=== PATIENT | female | born 2005 | race Two or more races ===

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

== ENCOUNTER 2024-06-19 11:49 | Emergency (ER) | payer BC, SELFPAY ==
[2024-06-19] VITALS (8 sets, daily range): BP systolic 105–125; BP diastolic 52–85; PULSE 64–76; RESP 15–19; TEMP 36.3–36.6; O2SAT 98–100
--- NOTE | 2024-06-19 12:14 | ED.FEMALEGU ---
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 Kumar ASSOCIATED WITH NAUSEA AND VOMITING. HISTORY OF ANEMIA SECONDARY TO HEAVY MENSTRUAL PERIOD, CURRENTLY ON IRON SUPPLEMENT. PATIENT DOES USE MARIJUANA DAILY. SHE DENIES ANY HISTORY OF ABDOMINAL SURGERY. PATIENT IS TELLING ME THAT HER SYMPTOM TODAY EXACTLY THE SAME WHEN SHE GET BAD MENSTRUAL CYCLE. BEEN ON DIFFERENT KIND OF CONTRACEPTIVE PILLS WITHOUT SIGNIFICANT IMPROVEMENT SHE DENIES ANY FEVER OR CHILLS, OR ANY POSSIBILITY OF , OR URINARY SYMPTOMS. Related Data Allergies Allergy/AdvReac Type Severity Reaction Status Date / Time No Known Allergies Allergy Verified 06/19/24 11:50 Review of Systems Review of Systems: All systems reviewed & are unremarkable except as noted in HPI and below PMFSH Social History Social History Smoking status: Never smoker Alcohol intake: never Substance use: never Living arrangements: with family Gender identity (if verbalized by the patient): Female Exam Narrative: GENERAL APPEARANCE: WELL-DEVELOPED, WELL-NOURISHED SKIN: NORMAL COLOR HEAD: NORMOCEPHALIC, NONTRAUMATIC EYES: CLEAR CONJUNCTIVA ENT: OROPHARYNX NORMAL, EARS NORMAL, NOSE NORMAL NECK: SUPPLE, NONTENDER CHEST AND RESPIRATORY: AIRWAY PATENT, NO RESPIRATORY DISTRESS, NO ACCESSORY MUSCLE USE HEART: REGULAR RATE/RHYTHM ABDOMEN: SOFT, SEVERE DIFFUSE TENDERNESS LOWER ABDOMEN BILATERALLY , NO ORGANOMEGALY, QUIET BOWEL SOUNDS VASCULAR: NORMAL PERIPHERAL PULSES, NORMAL CAPILLARY REFILL. 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, NO GROSS MOTOR DEFICIT Course Vital Signs Vital signs: Vital Signs Temperature 36.3 C L 06/19/24 11:53 Pulse Rate 65 06/19/24 11:53 Respiratory Rate 18 06/19/24 11:53 Blood Pressure 111/53 L 06/19/24 11:53 Pulse Oximetry 99 06/19/24 11:53 Oxygen Delivery Room Air 06/19/24 11:53 Temperature 36.3 C L 06/19/24 11:53 Pulse Rate 71 06/19/24 14:04 Respiratory Rate 15 06/19/24 14:04 Blood Pressure 105/52 L 06/19/24 14:04 Pulse Oximetry 98 06/19/24 14:04 Oxygen Delivery Room Air 06/19/24 11:53 MDM - Female Genitourinary MDM Narrative Medical decision making narrative: Patient came with lower abdominal cramps after starting her. This morning, history of dysmenorrhea for years, patient had similar symptom numerous of time in the past, this time happen while is at work. Vital signs are stable Physical examination showing diffuse lower abdominal tenderness Differential diagnosis include dysmenorrhea, anemia, anxiety like symptoms, marijuana induced vomiting Blood workup today includes CBC, CMP serum test showed no significant abnormalities Diagnosis dysmenorrhea The pt was discharged to home.the pt,s condition upon discharge was fair,education was provided to the pt in reference to the final impression,discharge study results,treatment,prognosis and need for follow up . Medical Records Attestation: I reviewed the patient's medical records. Lab Data Attestation: I reviewed the patient's lab results. 06/19/24 12:28 06/19/24 12:28 Labs: Lab Results 06/19/24 06/19/24 Range/Units 12:07 12:28 WBC 7.6 (4.5-10.0) K/mm3 RBC 4.45 (4.2-5.4) M/mm3 Hgb 12.2 (12.0-15.0) g/dL Hct 37.9 (37.0-47.0) % MCV 85.2 (80-100) fl MCH 27.4 (26-34) pg MCHC 32.2 (32-36) g/dl RDW 13.2 (11.5-14.5) % Plt Count 206 (150-375) k/mm3 MPV 10.9 H (7.4-10.4) fl Immature Gran % (Auto) 0.4 (0-0.5) % Neut % (Auto) 70.8 (45.5-73.1) % Lymph % (Auto) 21.7 (18.3-44.2) % Glascock % (Auto) 6.4 (2.6-8.5) % Eos % (Auto) 0.3 (0-4.4) % Baso % (Auto) 0.4 (0.2-1.2) % Lymph # (Auto) 1.65 (0.9-3.2) K/mm3 Glascock # (Auto) 0.5 (0.1-0.6) K/mm3 Eos # (Auto) 0.0 (0-0.3) K/mm3 Baso # (Auto) 0.0 (0.0-0.1) K/mm3 Abs Immat Gran (auto) 0.03 (0.00-0.031) K/mm3 Absolute Neuts (auto) 5.4 (1.3-6.7) K/mm3 Absolute Nucleated RBC 0.000 (0.0-0.012) K/mm3 Nucleated RBC % 0.0 (0.0-0.2) % Sodium 138 (137-145) mmol/L Potassium 3.7 (3.4-5.0) mmol/L Chloride 107 (98-107) mmol/L Carbon Dioxide 27 (22-30) mmol/L Anion Gap 4 (4-12) mmol/L BUN 9 (7-17) mg/dL Creatinine 0.70 (0.7-1.0) mg/dL Estim Creat Clear Calc 84 ml/min Estimated GFR > 60 (59 - ) Glucose 81 (65-110) mg/dL Calcium 9.4 (8.4-10.2) mg/dL Total Bilirubin 0.7 (0.2-1.3) mg/dL AST 25 (14-36) U/L ALT 11 (6-35) U/L Alkaline Phosphatase 41 (38-126) U/L Total Protein 8.0 (6.3-8.2) g/dL Albumin 4.6 (3.5-5.1) g/dL Serum HCG, Qual Negative POC Urine HCG, Qual Negative (Negative) Critical Care Time Critical Care Time Critical Care Time: No Discharge Plan Discharge Clinical Impression: Dysmenorrhea Patient Disposition: Home, Self-Care Condition: Stable Instructions: Dysmenorrhea (ED) Additional Instructions: Return if symptoms are worsening , call your family physician for appointment, take Tylenol as as needed for aches and pain, continue home medications. Encourage fluid intake, ibuprofen 800 every 8 hours as needed Follow-up/Referrals: Laura Winn MD [Physician] - 06/21/24 Maura,Paige Bravo MD [Non-Staff] -
[2024-06-19 12:17] LABS: BEDSIDEPREGUCG Negative (Negative)
[2024-06-19 12:34] LABS: Basophils Percent Auto 0.4 % (0.2-1.2); Eosinophils Percent Auto 0.3 % (0-4.4); Hematocrit 37.9 % (37.0-47.0); Hemoglobin 12.2 g/dL (12.0-15.0); Immature Granulocyte Absolute 0.03 K/mm3 (0.00-0.031); Immature Granulocyte Percent A 0.4 % (0-0.5); Lymphocytes Absolute Auto 1.65 K/mm3 (0.9-3.2); Lymphocytes Percent Auto 21.7 % (18.3-44.2); Mean Corpuscular HGB Conc 32.2 g/dl (32-36); Mean Corpuscular Hemoglobin 27.4 pg (26-34); Mean Corpuscular Volume 85.2 fl (80-100); Mean Platelet Volume 10.9 fl (7.4-10.4); Monocytes Absolute Auto 0.5 K/mm3 (0.1-0.6); Monocytes Percent Auto 6.4 % (2.6-8.5); Neutrophils Absolute Auto 5.4 K/mm3 (1.3-6.7); Neutrophils Percent Auto 70.8 % (45.5-73.1); Platelet Count Result 206 k/mm3 (150-375); Red Blood Count 4.45 M/mm3 (4.2-5.4); Red Cell Distribution Width 13.2 % (11.5-14.5); White Blood Count 7.6 K/mm3 (4.5-10.0)
[2024-06-19] MEDS: SODIUM CHLORIDE 0.9% IV 2,000 ML 999 ML IV CONT (12:35)
[2024-06-19] MEDS: ONDANSETRON INJ 4 MG/2 ML VIAL IV PUSH (12:36)
[2024-06-19] MEDS: KETOROLAC 30 MG/ML VIAL (*BKC) IV PUSH (12:37)
[2024-06-19] MEDS: HYDROmorphone HCL INJ (*CRX) 1 MG/ML SYR 0.5 MG IV PUSH ×2 (12:38→14:29)
[2024-06-19 12:44] LABS: Alanine Aminotransferase 11 U/L (6-35); Albumin Level 4.6 g/dL (3.5-5.1); Alkaline Phosphatase 41 U/L (38-126); Anion Gap 4 mmol/L (4-12); Aspartate Amino Transferase 25 U/L (14-36); Bilirubin,Total 0.7 mg/dL (0.2-1.3); Blood Urea Nitrogen 9 mg/dL (7-17); Calcium 9.4 mg/dL (8.4-10.2); Carbon Dioxide 27 mmol/L (22-30); Chloride 107 mmol/L (98-107); Estimated CRCL calculation 84 ml/min; Estimated Glomerular Filt Rate > 60; Glucose 81 mg/dL (65-110); Potassium 3.7 mmol/L (3.4-5.0); Sodium 138 mmol/L (137-145)
[2024-06-19 12:54] LABS: SPREG INTERNAL CONTROL Positive; Serum Qual hCG Negative
== END 2024-06-19 14:57 | disposition home or self-care (01) ==
PROVIDERS: Emergency Provider Emergency Medicine
DX: N94.6 Dysmenorrhea, unspecified (principal); D64.9 Anemia, unspecified
CPT/HCPCS: 36415; 80053; 81025; 84703; 85025; 96361; 96374; 96375; 96376; 99284; J1171; J1885; J2405; J7030

== ENCOUNTER 2024-08-24 20:45 | Emergency (ER) | payer BC, SELFPAY ==
--- OUTSIDE RECORDS SUMMARY | 2024-08-24 20:47 | XMS_ITS | Encounter Summary ---
Author Organization 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
--- OUTSIDE RECORDS SUMMARY | 2024-08-24 20:47 | XMS_ITS | Referral Summary ---
Author Organization [facility] Address [address] [place] [address] Care Team Providers Care Continuous Mining Machine Lode Miner Name Role Phone Paige Lorenzo MD Primary Care Pro vider Fox Boggs MD Unavailable [phone] Allergies No known active allergies Medications hydrOXYzine (VISTARIL) 25 mg capsule Take 1 capsule (25 mg total) by mouth every 6 (six) hours as needed for itching (PAIN) 60 capsule 1 0 Active Additional Information Patient not taking.Reported on 02/14/2020 HYDROcodone-morgan taminophen (NORCO) 5-325 mg per tabletIndicatio ns:Pain Take 1 tablet by mouth every 4 (four) hours as needed for pain 10 tablet 0 Active Additional Information Patient not taking.Reported on 06/05/2020 famotidine (PEPCID) 20 mg tablet Take 1 tablet (20 mg total) by mouth 2 (two) times a day 60 tablet 11 4 11/29/19 25 Active Active Problems Problem Noted Date Diagnosed Date Wound dehiscence 05/22/2020 Overview (05/22/2020): Added automatically from request for surgery [id number] Right hip pain 02/16/2020 Hip dysplasia, acquired, right 11/30/2019 Overview (11/30/2019): Added automatically from request for surgery [id number] Apnea 12/15/2018 Overview (12/15/2018): Overview: MILD SLEEP APNEA Immunizations Name Administration Dates Next Due DTaP 09/04/2007,11/19/2005,10/02/2005 ,2003 DTaP / Hep B / IPV 2003,2003 HPV9 03/07/2017,03/05/2016 Hep A, Pediatric 06/10/2006,11/19/2005 Hep B, Adolescent or Pediatric 10/02/2005,2003,2003,2003 HiB 11/19/2005,10/02/2005,2003 ,2003 Hib (HbOC) 11/19/2005,10/02/2005,2003 ,2003 IPV 09/04/2007, 6,10/02/2005,2003 ,2003 Influenza, Split 07/30/2008,06/10/2006 Influenza, Unspecified 07/30/2006 MMR 09/04/2007,10/02/2005 Meningococcal Conjugate (Menveo) 09/06/2020,080 11/2014 Pneumococcal Conjugate 7-Valent 10/02/2005,12/28,2003 Tdap 03/01/2015 Varicella 09/04/2007,10/02/2005 Social History Tobacco Use Types Packs/Day Years Used Date Smoking Tobacco: Never Smokeless Tobacco: Never Alcohol Use Standard Drinks/Week Comments Never 0 (1 standard drink = 0.6 oz pur e alcohol) AUDIT-C Answer Date Recorded Q1: How often do you have a drink containing alc ohol? Never 05/22/2020 Average Number of Drinks Not on file 020 Frequency of Binge Drinking Not on file 04/28 Personal Safety Answer Date Recorded Have you ever been in or are you currently in a harmful physical or emotional relationship or is someone making you feel afraid or unsafe? 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 Gender Identity Not on file Sexual Orientation Not on file Last Filed Vital Signs Vital Sign Reading Time Taken Comments Blood Pressure 115/69 11/29/2023 2:10 AM CDT Pulse 67 11/29/2023 2:10 AM CDT Temperature 36.8 ??C (98.2 ??F) 11/29/2023 2:10 AM CD T Respiratory Rate 16 11/29/2023 2:10 AM CDT Oxygen Saturation 100% 11/29/2023 2:10 AM CDT Inhaled Oxygen Concentration - - Weight 48.5 kg (107 lb) 11/28/2023 8:39 PM CDT Height 157.5 cm (5' 2 ) 11/28/2023 8:39 PM CDT Body Mass Index 19.57 11/28/2023 8:39 PM CDT Plan of Treatment Not on file Medical Devices Implanted Type Area Legal Executive Assistant Device Identifier Shelf Expiration Date Model / Serial / Lot Powell & Nephew Endoscopy [id number] [place] Suture Microraptor Regenesorb Knotless Rigid - Sn/A - [id number] Implanted:Qty: 1 on 01/18/2020 by Fox Boggs MD at [facility] Other - see comments Right: Hip [employer] Nephew Endoscopy [id number] 03/15/2022 [id number] / N/A / [id number] Powell [employer] Nephew Endoscopy [id number] [place] Suture Microraptor Regenesorb Knotless Rigid - Sn/A - [id number] Implanted:Qty: 1 on 01/18/2020 by Fox Boggs MD at [facility] Other - see comments Right: Hip Powell [employer] Nephew Endoscopy [id number] 04/08/2022 [id number] / N/A / [id number] Synthes 214.880 4.5mm 8mm 80mm Self Tap Large Hexagonal Socket Cortical Screw - Sn/A - [id number] Implanted:Qty: 1 on 01/18/2020 by Fox Boggs MD at [facility] Screw Right: Hip Synthes I 214.880 / N/A / N/A Synthes 214.895 4.5mm 8mm 95mm Self Tap Large Hexagonal Socket Cortical Screw - Sn/A - [id number] Implanted:Qty: 1 on 01/18/2020 by Fox Boggs MD at [facility] Screw Right: Hip Synthes I 214.895 / N/A / N/A Synthes 214.870 4.5mm 8mm 70mm Self Tap Large Hexagonal Socket Cortex Screw Bone - Sn/A - [id number] Implanted:Qty: 1 on 01/18/2020 by Fox Boggs MD at [facility] Screw Right: Hip Synthes I 214.870 / N/A / N/A Synthes 214.860 4.5mm 8mm 60mm Self Tap Large Hexagonal Socket Cortical Screw - Sn/A - [id number] Implanted:Qty: 1 on 01/18/2020 by Fox Boggs MD at [facility] Screw Right: Hip Synthes I 214.860 / N/A / N/A Explanted Type Area Legal Executive Assistant Device Identifier Shelf Expiration Date Model / Serial / Lot Synthes 294.786 Schanz 5mm 200mm 80mm Self Drill Mr Conditional Screw External - Sn/A - [id number] Explanted:Qty: 1 on 01/18/2020 by Fox Boggs MD at [facility] Screw Right: Hip Synthes I 294.786 / N/A / N/A Description:Used for procedu re and removed at end. Synthes 292.26 Chana 2.5mm 285mm [place] Wire Fixation Stainless Steel - Sn/A - [id number] Explanted:Qty: 2 on 01/18/2020 by Fox Boggs MD at [facility] Wire Right: Hip Synthes I 292.26 / N/A / N/A Description:Used for procedu re and removed at end. 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
--- OUTSIDE RECORDS SUMMARY | 2024-08-24 20:47 | XMS_ITS | Clinical Summary ---
Author Organization [facility] Address [address] [place] [address] Care Team Providers Care House Detective Name Role Phone Paige Lorenzo MD Primary Care Pro vider Fox Boggs MD Unavailable [phone] Allergies No known active allergies Medications [...] (05/22/2020): Added automatically from request for surgery [id number] Right hip pain 02/16/2020 Hip dysplasia, acquired, right 11/30/2019 Overview (11/30/2019): Added automatically from request for surgery [id number] Apnea 12/15/2018 Overview (12/15/2018): Overview: MILD SLEEP APNEA Immunizations Name Administration Dates Next Due DTaP 09/04/2007,11/19/2005,10/02/2005 ,2003 DTaP / Hep B / IPV 2003,2003 HPV9 03/07/2017,03/05/2016 Hep A, Pediatric 06/10/2006,11/19/2005 Hep B, Adolescent or Pediatric 10/02/2005,2003,2003,2003 HiB 11/19/2005,10/02/2005,2003 ,2003 Hib (HbOC) 11/19/2005,10/02/2005,2003 ,2003 IPV 09/04/2007, 6,10/02/2005,2003 ,2003 Influenza, Split 07/30/2008,06/10/2006 Influenza, Unspecified 07/30/2006 MMR 09/04/2007,10/02/2005 Meningococcal Conjugate (Menveo) 09/06/2020,08/0 11/2014 Pneumococcal Conjugate 7-Valent 10/02/2005,12/28,2003 Tdap 03/01/2015 Varicella 09/04/2007,10/02/2005 Surgical History Surgery Date Site/Laterality Comments TONSILLECTOMY 07/28/2009 - 07/27/2010 Tonsillectomy FLUORO GUIDED INJECTION HIP RIGHT 01/11/2019 Right HIP SURGERY Medical History Medical History Date Comments Hip pain Hip dysplasia Family History Medical History Relation Name Comments Low Back Pain Father Anesthesia problems Neg Hx Relation Name Status Comments Father Alive Mother Alive Social History Tobacco Use Types Packs/Day Years [...] on file Legal Sex Female 1:[address] Gender Identity Not on file Sexual Orientation Not on file Obstetrics History Last Filed Vital Signs Vital Sign Reading [...] 11/28/2023 8:39 PM CDT Plan of Treatment Health Maintenance Due Date Last Done Comments Cervical Cancer Screening 2003 Depression Screening 2003 Hepatitis C Screening 2003 Meningococcal B Vaccine (1 o f 2 - Patient Seeks Protection) 2019 Regular Well Visit/Exam 18-64 2021 Covid-19 Vaccine (2 - 2023-2 5 season) 2024 02/15/2021 Influenza Vaccine (#1) 2024 9, 07/30/2006, 06/10/2006 DTaP/Tdap/Td Vaccine (6 - Td or Tdap) 03/01/2025 03/01/2015, 09/04/2007, 11/19/2005, Additional history exists Pneumococcal vaccine <65 Completed 006, 2003, 2003 Varicella Vaccines Completed 09/04/2007, 10/02/2005 HPV Vaccines Completed 03/07/2017, 03/05/2016 Meningococcal Vaccine Completed 09/06/2020, 015 Medical Devices Implanted Type Area Orchard Pruner Device Identifier Shelf Expiration Date Model / Serial / Lot Powell & Nephew Endoscopy [id number] [place] Suture Microraptor Regenesorb Knotless Rigid - Sn/A - [id number] Implanted:Qty: 1 on 01/18/2020 by Fox Boggs MD at [facility] Other - see comments Right: Hip [employer] Nephew Endoscopy [id number] 03/15/2022 [id number] / N/A / [id number] Powell [employer] Nephew Endoscopy [id number] [place] Suture Microraptor Regenesorb Knotless Rigid - Sn/A - [id number] Implanted:Qty: 1 on 01/18/2020 by Fox Boggs MD at [facility] Other - see comments Right: Hip [employer] Nephew Endoscopy [id number] 04/08/2022 [id number] / N/A / [id number] Synthes 214.880 4.5mm 8mm 80mm Self Tap Large Hexagonal Socket Cortical Screw - Sn/A - [id number] Implanted:Qty: 1 on 01/18/2020 by Fox Boggs MD at [facility] Screw Right: Hip Synthes I 214.880 / N/A / N/A Synthes 214.895 4.5mm 8mm 95mm Self Tap Large Hexagonal Socket Cortical Screw - Sn/A - [id number] Implanted:Qty: 1 on 01/18/2020 by Fox Boggs MD at [facility] Screw Right: Hip Synthes I 214.895 / N/A / N/A Synthes 214.870 4.5mm 8mm 70mm Self Tap Large Hexagonal Socket Cortex Screw Bone - Sn/A - [id number] Implanted:Qty: 1 on 01/18/2020 by Fox Boggs MD at [facility] Screw Right: Hip Synthes I 214.870 / N/A / N/A Synthes 214.860 4.5mm 8mm 60mm Self Tap Large Hexagonal Socket Cortical Screw - Sn/A - [id number] Implanted:Qty: 1 on 01/18/2020 by Fox Boggs MD at [facility] Screw Right: Hip Synthes I 214.860 / N/A / N/A Explanted Type Area Orchard Pruner Device Identifier Shelf Expiration Date Model / Serial / Lot Synthes 294.786 Schanz 5mm 200mm 80mm Self Drill Mr Conditional Screw External - Sn/A - [id number] Explanted:Qty: 1 on 01/18/2020 by Fox Boggs MD at [facility] Screw Right: Hip Synthes I 294.786 / N/A / N/A Description:Used for procedu re and removed at end. Synthes 292.26 Chana 2.5mm 285mm [place] Wire Fixation Stainless Steel - Sn/A - [id number] Explanted:Qty: 2 on 01/18/2020 by Fox Boggs MD at [facility] Wire Right: Hip Synthes I 292.26 / N/A / N/A Description:Used for procedu re and removed at end. Insurance ANTHEM ACCESS ANTHEM ACCESS CHOICE BLUE ACCESS OOS [facility] KERRI VALENZUELA [address] [employer] OOS [id number] Digital ACCESS Member Subscriber Plan / Payer (Ef fective 2015-Present) Name:Rosalie Bolton Relation to Subscriber:Other Relationship Name:ROSY BOLTON Subscriber ID:Not on file Date of :1975 Payer ID:[id number] (NAIC) Type:[employer] Address: [address] CHOICE PLUS BLUE ACCESS OOS BLUE ACCESS [place] BLUE ACCESS OOS ANTH ACCESS Care Teams House Detective Relationship Specialty Start Date End Date Paige Lorenzo MD PCP - General 10/11/17 Fox Boggs MD [address] [facility] [address] [place] [address] Surgeon Orthopedic Surgery 05/23/20
[2024-08-24 21:14] VITALS: BP 114/74; PULSE 82; RESP 20; TEMP 37.4; O2SAT 99
--- NOTE | 2024-08-24 22:29 | PC.NURSE ---
1st call no answer
--- NOTE | 2024-08-24 22:37 | PC.NURSE ---
2nd call no answer
--- OUTSIDE RECORDS SUMMARY | 2024-08-24 22:49 | XMS_ITS | Encounter Summary ---
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
--- OUTSIDE RECORDS SUMMARY | 2024-08-24 22:49 | XMS_ITS | Clinical Summary ---
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 Gender Identity Not on file Sexual Orientation [...] 09/06/2020, 015 Medical Devices Implanted Type Area Extractor Machine Operator Device Identifier Shelf Expiration Date Model / Serial / Lot Powell & Nephew Endoscopy [id number] [place] Suture Microraptor Regenesorb Knotless Rigid - Sn/A - [id number] Implanted:Qty: 1 on 01/18/2020 by Fox Boggs MD at [facility] Other - see comments Right: Hip [employer] Nephew Endoscopy [id number] 03/15/2022 [id number] / N/A / [id number] Powell [employer] Nephew Endoscopy [id number] [place] Suture Microraptor Regenesorb Knotless Rigid - Sn/A - [id number] Implanted:Qty: 1 on 01/18/2020 by Fox Boggs MD at [facility] Other - see comments Right: Hip [employer] Nephew Endoscopy [id number] 04/08/2022 [id number] / N/A / [id number] Synthes 214.880 4.5mm 8mm 80mm Self Tap Large Hexagonal Socket Cortical Screw - Sn/A - [id number] Implanted:Qty: 1 on 01/18/2020 by Fox Boggs MD at [facility] Screw Right: Hip Synthes I 214.880 / N/A / N/A Synthes 214.895 4.5mm 8mm 95mm Self Tap Large Hexagonal Socket Cortical Screw - Sn/A - [id number] Implanted:Qty: 1 on 01/18/2020 by Fox Boggs MD at [facility] Screw Right: Hip Synthes I 214.895 / N/A / N/A Synthes 214.870 4.5mm 8mm 70mm Self Tap Large Hexagonal Socket Cortex Screw Bone - Sn/A - [id number] Implanted:Qty: 1 on 01/18/2020 by Fox Boggs MD at [facility] Screw Right: Hip Synthes I 214.870 / N/A / N/A Synthes 214.860 4.5mm 8mm 60mm Self Tap Large Hexagonal Socket Cortical Screw - Sn/A - [id number] Implanted:Qty: 1 on 01/18/2020 by Fox Boggs MD at [facility] Screw Right: Hip Synthes I 214.860 / N/A / N/A Explanted Type Area Extractor Machine Operator Device Identifier Shelf Expiration Date Model / Serial / Lot Synthes 294.786 Schanz 5mm 200mm 80mm Self Drill Mr Conditional Screw External - Sn/A - [id number] Explanted:Qty: 1 on 01/18/2020 by Fox Boggs MD at [facility] Screw Right: Hip Synthes I 294.786 / N/A / N/A Description:Used for procedu re and removed at end. Synthes 292.26 Chana 2.5mm 285mm [place] Wire Fixation Stainless Steel - Sn/A - [id number] Explanted:Qty: 2 on 01/18/2020 by Fox Boggs MD at [facility] Wire Right: Hip Synthes I 292.26 / N/A / N/A Description:Used for procedu re and removed at end. Insurance ANTHEM ACCESS ANTHEM ACCESS CHOICE BLUE ACCESS OOS [facility] KERRI VALENZUELA [address] [employer] OOS ANTHASSIA ACCESS Member Subscriber Plan / Payer (Ef fective 2015-Present) Name:Rosalie Bolton Relation to Subscriber:Other Relationship Name:ROSY BOLTON Subscriber ID:Not on file Date of :1975 Payer ID:[id number] (NAIC) Type:[employer] Address: [address] CHOICE PLUS [facility] HMO/PPO Address: [address] [address] [place] [address] BLUE ACCESS OOS BLUE ACCESS [place] BLUE ACCESS OOS ANTH ACCESS Care Teams Psychologist Military Personnel Relationship Specialty Start Date End Date Paige Lorenzo MD PCP - General 10/11/17 Fox Boggs MD [address] [facility] [address] [place] [address] Surgeon Orthopedic Surgery 05/23/20
--- OUTSIDE RECORDS SUMMARY | 2024-08-24 22:49 | XMS_ITS | Referral Summary ---
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 Other - see comments Right: Hip [employer] Nephew Endoscopy [id number] 03/15/2022 [id number] / N/A / [id number] Powell [employer] Nephew Endoscopy [id number] [place] Suture Microraptor Regenesorb Knotless Rigid - Sn/A - [id number] Implanted:Qty: 1 on 01/18/2020 by Fox Boggs MD at [facility] Other - see comments Right: Hip Powell [employer] Nephew Endoscopy [id number] 04/08/2022 [id number] / N/A / [id number] Synthes 214.880 4.5mm 8mm 80mm Self Tap Large Hexagonal Socket Cortical Screw - Sn/A - [id number] Implanted:Qty: 1 on 01/18/2020 by Fox Boggs MD at [facility] Screw Right: Hip Synthes I 214.880 / N/A / N/A Synthes 214.895 4.5mm 8mm 95mm Self Tap Large Hexagonal Socket Cortical Screw - Sn/A - [id number] Implanted:Qty: 1 on 01/18/2020 by Fox Boggs MD at [facility] Screw Right: Hip Synthes I 214.895 / N/A / N/A Synthes 214.870 4.5mm 8mm 70mm Self Tap Large Hexagonal Socket Cortex Screw Bone - Sn/A - [id number] Implanted:Qty: 1 on 01/18/2020 by Fox Boggs MD at [facility] Screw Right: Hip Synthes I 214.870 / N/A / N/A Synthes 214.860 4.5mm 8mm 60mm Self Tap Large Hexagonal Socket Cortical Screw - Sn/A - [id number] Implanted:Qty: 1 on 01/18/2020 by Fox Boggs MD at [facility] Screw Right: Hip Synthes I 214.860 / N/A / N/A Explanted Type Area Materials Planner/Production Planner Device Identifier Shelf Expiration Date Model / Serial / Lot Synthes 294.786 Schanz 5mm 200mm 80mm Self Drill Mr Conditional Screw External - Sn/A - [id number] Explanted:Qty: 1 on 01/18/2020 by Fox Boggs MD at [facility] Screw Right: Hip Synthes I 294.786 / N/A / N/A Description:Used for procedu re and removed at end. Synthes 292.26 Chana 2.5mm 285mm [place] Wire Fixation Stainless Steel - Sn/A - [id number] Explanted:Qty: 2 on 01/18/2020 by Fox Boggs MD at [facility] Wire Right: Hip Synthes I 292.26 / N/A / N/A Description:Used for procedu re and removed at end. Insurance ACCESS ANTHEM ACCESS CHOICE BLUE ACCESS OOS BLUE ACCESS OOS ANTHEM ACCESS Member Subscriber Plan / Payer (Ef fective 2015-Present) Name:Rosalie Bolton Relation to Subscriber:Other Relationship Name:ROSY BOLTON Subscriber ID:Not on file Date of :1975 Payer ID:[id number] (NAIC) Type:[employer] Address: [address] CHOICE PLUS [facility] HMO/PPO Address: [address] [address] [place] [address] BLUE [employer] OOS BLUE ACCESS [place] [employer] ACCESS OOS [employer] ACCESS Care Teams Front Line Leader Relationship Specialty Start Date End Date Paige Lorenzo MD PCP - General 10/11/17 Fox Boggs MD [address] [facility] [address] [place] [address] Surgeon Orthopedic Surgery 05/23/20
== END 2024-08-24 22:37 | disposition left against medical advice (07) ==
LOC: ANHED 22:47
DX: J02.9 Acute pharyngitis, unspecified (principal)
CPT/HCPCS: 99199

== ENCOUNTER 2025-03-23 12:25 | Emergency (ER) | payer BC, SELFPAY ==
--- NOTE | ~2025-03-23 | US_ITS ---
EXAMINATION: US pelvic complete INDICATION: Severe pelvic pain Comparison:No prior studies for comparison. TECHNIQUE: Multiple transabdominal and endovaginal sonographic images of the pelvis performed. FINDINGS: The uterus measures 6.5 x 4.4 x 3.9 cm. The endometrial complex measures 4 mm. The right ovary measures 4.1 x 4.0 x 3.1 cm and the left ovary measures 2.5 x 2.5 x 1.6 cm. There are small follicles in each ovary. There is a 3.9 cm simple cyst of the right ovary. Normal doppler signal in both ovaries. There is no free fluid in the pelvis. There are no abnormal masses seen on either side. IMPRESSION: 1. Simple cyst of the right ovary measuring 3.9 cm. Reviewed, dictated and finalized at location O.
--- OUTSIDE RECORDS SUMMARY | 2025-03-23 12:27 | XMS_ITS | Clinical Summary ---
Author Organization [facility] Address [address] [place] [address] Phone Care Team Providers Care Tank Inspector Name Role Phone Paige Lorenzo MD Primary Care Provider Allergies No known active allergies Medications silver sulfADIAZINE (SILVADENE) 1 % CreamIndications :Sunburn of second degree Apply 2 times daily. Application Site: Face (Description and Location) 50 g Active Active Problems No known active problems Encounters Date Type Department Care Team Description 01/04/2025 2:30 PM CDT Urgent Care Visit [facility] [address] [place] [address] Vishnu Presley PAC Sunburn of second degree (Primary Dx) Discharge Disposition: Discharged to home or Selfcare 01/04/2025 Travel from Last 3 Months Social History Tobacco Use Types Packs/Day Years Used Date Smoking Tobacco: Never Smokeless Tobacco: Never Tobacco Cessation:Counseling Given: No Alcohol Use Standard Drinks/Week Comments No 0 (1 standard drink = 0.6 oz pur e alcohol) Sexually Active Control Partners Comments Yes Comments No Sex and Gender Information Value Date Recorded Sex Assigned at Not on file Legal Sex Female 8:11 PM CDT Gender Identity Not on file Sexual Orientation Not on file Last Filed Vital Signs Vital Sign Reading Time Taken Comments Blood Pressure 130/70 01/04/2025 2:51 PM CDT Pulse 68 01/04/2025 2:51 PM CDT Temperature 36.4 C (97.5 F) 01/04/2025 2:51 PM CDT Respiratory Rate 16 01/04/2025 2:51 PM CDT Oxygen Saturation 97% 01/04/2025 2:51 PM CDT Inhaled Oxygen Concentration - - Weight 53.5 kg (118 lb) 08/04/2018 4:28 PM CAB DRIVER Height 160 cm (5' 3) 08/04/2018 4:28 PM CAB DRIVER Body Mass Index 20.9 08/04/2018 4:28 PM CAB DRIVER Plan of Treatment Health Maintenance Due Date Last Done Comments Hepatitis C Virus (HCV) Screening 2003 Meningococcal B Immunization (1 of 2 - Standard) 2019 SARS-COV-2 Immunization (2 - season) 2024 02/15/2021 Pap Smear 2024 Influenza Immunization (#1) 2025 07/30/2006 Respiratory Syncytial Virus (RSV) Immunization (Adult) (1 - 1-dose 75+ series) 2078 Hepatitis B Immunization Completed 006, 2003, 2003, Additional history exists Pneumococcal Immunization Combined Aged Out 10/02/2005, 2003, 2003 No longer eligible based on patient's age to complete this topic TdaP Immunization Completed 03/01/2015 Human Papillomavirus (HPV) Immunization Completed 03/07/2017, 03/05/2016 Meningococcal Immunization (ACWY) Completed 09/06/2020, 03/01/2015 Rotavirus Immunization Aged Out No lo nger eligible based on patient's age to complete this topic Insurance [facility] Care Teams Tank Inspector Relationship Specialty Start Date End Date Paige Lorenzo MD [address] [place] [address] [place] [address] PCP - General Pediatrics 08/04/18
[2025-03-23 12:44] VITALS: BP 118/80; PULSE 68; RESP 20; TEMP 36.6; O2SAT 100
[2025-03-23] MEDS: KETOROLAC 30 MG/ML VIAL (*BKC) IM (13:27)
[2025-03-23 13:29] LABS: BEDSIDEPREGUCG Negative (Negative)
--- OUTSIDE RECORDS SUMMARY | 2025-03-23 13:46 | XMS_ITS | Encounter Summary ---
Author Organization [facility] Healthcare Address [address] [place] [address] Care Team Providers Care Electrical Assemblies Supervisor Name Role Phone Paige Lorenzo MD Primary Care Pro vider Fox Boggs MD Unavailable [phone] Encounter Details Date Type Department Care Team (Late st Contact Info) Description 01/14/2020 Telephone [facility] [address] [place] [address] Martina Phillips RT Social History Tobacco Use Types Packs/Day Years Used Date Smoking Tobacco: Never Smokeless Tobacco: Never Comments No Sex and Gender Information Value Date Recorded Sex Assigned at Not on file 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
--- OUTSIDE RECORDS SUMMARY | 2025-03-23 13:46 | XMS_ITS | Clinical Summary ---
Author Organization [facility] Address [address] [place] [address] Care Team Providers Care Floor Grinder Name Role Phone Paige Lorenzo MD Primary Care Pro vider Fox Boggs MD Unavailable [phone] Allergies No known active allergies Medications [...] times a day 60 tablet 11 4 Active Active Problems Problem Noted Date Diagnosed Date Wound dehiscence 05/22/2020 Overview (05/22/2020): Added automatically from request for surgery [id number] Right hip pain 02/16/2020 Hip dysplasia, acquired, right 11/30/2019 Overview (11/30/2019): Added automatically from request for surgery [id number] Apnea 12/15/2018 Overview (12/15/2018): Overview: MILD SLEEP APNEA Immunizations Immunization Administration Dates Next Due DTaP 09/04/2007,11/19/2005,10/02/2005 ,2003 [...] on file Legal 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 Gender Identity Not on file Sexual Orientation Not on file Obstetrics History Last Filed Vital Signs Vital Sign Reading Time Taken Comments Blood Pressure 115/69 11/29/2023 2:10 AM CDT Pulse 67 11/29/2023 2:10 AM CDT Temperature 36.8 C (98.2 F) 11/29/2023 2:10 AM CDT Respiratory Rate 16 11/29/2023 2:10 AM CDT Oxygen Saturation 100% 11/29/2023 2:10 AM CDT Inhaled Oxygen Concentration - - Weight 48.5 kg (107 lb) 11/28/2023 8:39 PM CDT Height 157.5 cm (5' 2) 11/28/2023 8:39 PM CDT Body Mass Index 19.57 11/28/2023 8:39 PM CDT Plan of Treatment Health Maintenance Due Date Last Done Comments Cervical Cancer Screening 2003 Depression Screening 2003 Hepatitis C Screening 2003 Meningococcal B Vaccine (1 o f 2 - Standard) 2019 Regular Well Visit/Exam 18-64 2021 Covid-19 Vaccine (2 - 2023-2 5 season) 2024 02/15/2021 DTaP/Tdap/Td Vaccine (6 - Td or Tdap) 03/01/2025 03/01/2015, 09/04/2007, 11/19/2005, Additional history exists Influenza Vaccine (#1) 2025 9, 07/30/2006, 06/10/2006 Hepatitis B Screening Completed 10/02/2005 , 2003, 2003, Additional history exists Pneumococcal vaccine <65 Completed 006, 2003, 2003 Varicella Vaccines Completed 09/04/2007, 10/02/2005 HPV Vaccines Completed 03/07/2017, 03/05/2016 Meningococcal Vaccine Completed 09/06/2020, 015 Medical Devices Implanted Type Area Qc Lab Technician Device Identifier Shelf Expiration Date Model / Serial / Lot [employer]hew Endoscopy [id number] [place] Suture Microraptor Regenesorb Knotless Rigid - Sn/A - [id number] Implanted:Qty: 1 on 01/18/2020 by Fox Boggs MD at [facility] Other - see comments Right: Hip [employer] [id number] 03/15/2022 [id number] / N/A / [id number] [employer] [id number] [place] Suture Microraptor Regenesorb Knotless Rigid - Sn/A - [id number] Implanted:Qty: 1 on 01/18/2020 by Fox Boggs MD at [facility] Other - see comments Right: Hip [employer] [id number] 04/08/2022 [id number] / N/A / [id number] Synthes 214.880 4.5mm 8mm 80mm Self Tap Large Hexagonal Socket Cortical Screw - Sn/A - [id number] Implanted:Qty: 1 on 01/18/2020 by Fox Boggs MD at [facility] Screw Right: Hip Synthes I 214.880 / N/A / N/A Synthes 214.895 4.5mm 8mm 95mm Self Tap Large Hexagonal Socket Cortical Screw - Sn/A - [id number] Implanted:Qty: 1 on 01/18/2020 by Fox Boggs MD at [facility] Screw Right: Hip Synthes I 214.895 / N/A / N/A Synthes 214.870 4.5mm 8mm 70mm Self Tap Large Hexagonal Socket Cortex Screw Bone - Sn/A - [id number] Implanted:Qty: 1 on 01/18/2020 by Fox Boggs MD at [facility] Screw Right: Hip Synthes I 214.870 / N/A / N/A Synthes 214.860 4.5mm 8mm 60mm Self Tap Large Hexagonal Socket Cortical Screw - Sn/A - [id number] Implanted:Qty: 1 on 01/18/2020 by Fox Boggs MD at [facility] Screw Right: Hip Synthes I 214.860 / N/A / N/A Explanted Type Area Qc Lab Technician Device Identifier Shelf Expiration Date Model / Serial / Lot Synthes 294.786 Schanz 5mm 200mm 80mm Self Drill Mr Conditional Screw External - Sn/A - [id number] Explanted:Qty: 1 on 01/18/2020 by Fox Boggs MD at [facility] Screw Right: Hip Synthes I 294.786 / N/A / N/A Description:Used for procedu re and removed at end. Synthes 292.26 Chana 2.5mm 285mm [place] Wire Fixation Stainless Steel - Sn/A - [id number] Explanted:Qty: 2 on 01/18/2020 by Fox Boggs MD at [facility] Wire Right: Hip Synthes I 292.26 / N/A / N/A Description:Used for procedu re and removed at end. Insurance ANTHEM ACCESS ANTHEM ACCESS CHOICE Member Subscriber Plan / Payer (Ef fective 2015-Present) Name:Rosalie Bolton Relation to Subscriber:Other Relationship Name:ROSY BOLTON Date of :1975 Payer ID:[id number] (NAIC) Type:Ko[employer]ame Address: [address] [place] [id number] BLUE ACCESS OOS [facility] [place] [place] [address] [employer] OOS [employer]TH[employer] ACCESS Member Subscriber Plan / Payer (Ef fective 2015-Present) Name:Rosalie Bolton Relation to Subscriber:Other Relationship Name:ROSY BOLTON Subscriber ID:Not on file Date of :1975 Payer ID:[id number] (NAIC) Type:Koogame Address: [address] [facility] H[facility]PP[facility] Address: [address] [address] [place] [address] BLUE ACCESS OOS BLUE ACCESS [place] BLUE ACCESS OOS ANTH ACCESS Care Teams Floor Grinder Relationship Specialty Start Date End Date Paige Lorenzo MD PCP - General 10/11/17 Fox Boggs MD [address] [facility] [address] [place] [address] Surgeon Orthopedic Surgery 05/23/20
[2025-03-23 13:52] LABS: Non Pathogenic Casts 0-2
[2025-03-23 14:13] LABS: Add Urine Microscopic? YES; Appearance Urine Cloudy (Clear); Glucose Urine UA Negative (Negative); Leukocyte Esterase Ur Trace LEU/UL (Negative); Nitrate Urine Negative (Negative); Specific Grav Ur 1.009 (1.001-1.035)
[2025-03-23] MEDS: ACETAMINOPHEN 500 MG TABLET 1000 MG PO (14:17)
--- NOTE | 2025-03-23 15:33 | ED.GENADULT ---
HPI - General Adult General Chief complaint: Abdominal Pain Stated complaint: period pain Time Seen by Provider: 03/23/25 12:51 History of Present Illness HPI narrative: This is a 19-year-old female with the history painful menses presenting for menstrual cramps. Patient is well crampy pain in the suprapubic region. This is been a well documented issue for her since she was 10 years old. She has tried multiple controls in the past which have not been very successful and she is no longer taking any. She has not followed up with an OBGYN. She is not have any fevers, urinary symptoms nausea vomiting or vaginal symptoms. She denies being sexually active. Related Data Allergies Allergy/AdvReac Type Severity Reaction Status Date / Time No Known Allergies Allergy Verified 03/23/25 12:43 [facility] Social History Social History Smoking status: Never smoker Alcohol intake: never Substance use: never Living arrangements: with family Gender identity (if verbalized by the patient): Female Exam Narrative: APPEARANCE: No apparent distress. Head: atraumatic. EYES: EOMI, NOSE: Atraumatic NECK: Trachea midline RESPIRATORY: No increased rate of breathing clear to auscultation CARDIOVASCULAR: RRR, ABDOMINAL: Suprapubic tenderness, no adnexal tenderness no guarding or rebound MUSCULOSKELETAl: No obvious deformities NEURO: Alert. Moving 4/4 extremities SKIN:: Warm, dry. Normal color PSYCHIATRIC: Normal affect Course Vital Signs Vital signs: Vital Signs Temperature 97.9 F 03/23/25 12:44 Pulse Rate 68 03/23/25 12:44 Respiratory Rate 20 03/23/25 12:44 Blood Pressure 118/80 03/23/25 12:44 Pulse Oximetry 100 03/23/25 12:44 Oxygen Delivery Room Air 03/23/25 12:44 Temperature 97.9 F 03/23/25 12:44 Pulse Rate 68 03/23/25 12:44 Respiratory Rate 20 03/23/25 12:44 Blood Pressure 118/80 03/23/25 12:44 Pulse Oximetry 100 03/23/25 12:44 Oxygen Delivery Room Air 03/23/25 12:44 Medical Decision Making MDM Narrative Medical decision making narrative: -Course: 19-year-old female with history of painful menses presenting with painful menses. Patient given Toradol. Ultrasound ordered to evaluate for ovarian pathology. She does have a 3.9 cm cyst but normal flow. Low concern for ovarian torsion. Patient was re-examined after Toradol and is now resting comfortably in bed. Abdominal exam is benign. Recommended the patient follow-up with OBGYN as her menses seems to be a recurring issue. Patient will be discharged with OBGYN follow-up. -DDX includes but is not limited to: Painful menses ovarian torsion, ovarian cysts Vital Signs Vital Signs: Vital Signs Temperature 97.9 F 03/23/25 12:44 Pulse Rate 68 03/23/25 12:44 Respiratory Rate 20 03/23/25 12:44 Blood Pressure 118/80 03/23/25 12:44 Pulse Oximetry 100 03/23/25 12:44 Oxygen Delivery Room Air 03/23/25 12:44 Temperature 97.9 F 03/23/25 12:44 Pulse Rate 68 03/23/25 12:44 Respiratory Rate 20 03/23/25 12:44 Blood Pressure 118/80 03/23/25 12:44 Pulse Oximetry 100 03/23/25 12:44 Oxygen Delivery Room Air 03/23/25 12:44 Lab Data Labs: Lab Results 03/23/25 Range/Units 13:26 Urine Color [place] H (Yellow) Urine Appearance Cloudy H (Clear) Urine pH 7.5 (5.0-9.0) Ur Specific [place] 1.009 (1.001-1.035) Urine Protein Trace (Negative) mg/dL Urine Glucose (UA) Negative (Negative) mg/dL Urine Ketones Negative (Negative) mg/dL Ur Blood (Man) 3+ H (Negative) Urine Nitrate Negative (Negative) Urine Bilirubin Negative (Negative) Urine Urobilinogen 0.2 (<2.0) mg/dL Leukocyte Esterase Rfl Trace H (Negative) BRIGID/UL Urine RBC 0-2 (0-2) /hpf Urine WBC 6-10 H (0-3) /hpf Ur Squamous Epith Cells Occasional (Few) /hpf Urine Bacteria Rare /hpf Urine Casts 0-2 POC Urine HCG, Qual Negative (Negative) Discharge Plan Discharge Clinical Impression: Menstrual pain Patient Disposition: Home Condition: Stable Instructions: Antibiotic Form, Dysmenorrhea (ED) Additional Instructions: Please use Motrin and Tylenol as needed for menstrual cramps. Please follow-up with Dr. Travis for further management. Return if develops severe pain or any new symptoms. Patient Language: Slovenian Follow-up/Referrals: Tiago Travis MD [Physician, HOME ENERGY CONSULTANT] - 1 Week PHYSICIAN,METAL MACHINIST [Primary Care Provider, Internal Medicine]
[2025-03-23 16:10] VITALS: BP 105/71; PULSE 75; RESP 14; TEMP 36.9; O2SAT 99
== END 2025-03-23 16:17 | disposition home or self-care (01) ==
PROVIDERS: Emergency Provider Emergency Medicine
DX: N94.6 Dysmenorrhea, unspecified (principal); R82.998 Other abnormal findings in urine
CPT/HCPCS: 76856; 81001; 81025; 87086; 96372; 99284; A9270; J1885

== ENCOUNTER 2025-05-10 00:36 | Day surgery (SDC) | payer BC, SELFPAY ==
--- OUTSIDE RECORDS SUMMARY | 2020-05-04 12:30 | XMS_ITS | Continuity of Care Document ---
Author Organization [facility] [place] Address [address] [place] [address] [address] [place] [address] Phone Care Team Providers Care Recep Name Role Phone Laron Kwon PT Unavailable Unavailable Procedures Procedure Date Progress Note Therapeutic Activities Manual Therapy Therapeutic Exercise Neuromuscular Re-Ed Therapeutic Activities Neuromuscular Re-Ed Hot or Cold Pack Manual Therapy Therapeutic Exercise Therapeutic Activities Therapeutic Exercise Manual Therapy Neuromuscular Re-Ed Therapeutic Activities Therapeutic Exercise Neuromuscular Re-Ed Manual Therapy Neuromuscular Re-Ed Therapeutic Activities Manual Therapy Therapeutic Exercise Hot or Cold Pack Neuromuscular Re-Ed Therapeutic Exercise Therapeutic Activities Hot or Cold Pack Manual Therapy Progress Note Therapeutic Exercise Neuromuscular Re-Ed Manual Therapy Therapeutic Activities Hot or Cold Pack Progress Note Therapeutic Exercise Manual Therapy Neuromuscular Re-Ed Therapeutic Activities Therapeutic Activities Hot or Cold Pack Neuromuscular Re-Ed Manual Therapy Therapeutic Exercise Neuromuscular Re-Ed Therapeutic Activities Therapeutic Exercise Therapeutic Activities Therapeutic Exercise Neuromuscular Re-Ed Hot or Cold Pack PT Evaluation Low Complexity Neuromuscular Re-Ed Therapeutic Exercise Therapeutic Activities Progress Note Therapeutic Activities Neuromuscular Re-Ed Therapeutic Exercise Manual Therapy Therapeutic Activities Therapeutic Exercise Neuromuscular Re-Ed Manual Therapy Hot or Cold Pack Therapeutic Exercise Therapeutic Activities Neuromuscular Re-Ed Manual Therapy Therapeutic Exercise Therapeutic Activities Neuromuscular Re-Ed Manual Therapy Hot or Cold Pack Electrical Stimulation Therapeutic Exercise Neuromuscular Re-Ed Manual Therapy Hot or Cold Pack Therapeutic Exercise Neuromuscular Re-Ed Therapeutic Activities Manual Therapy Hot or Cold Pack Electrical Stimulation Therapeutic Exercise Therapeutic Activities Neuromuscular Re-Ed Manual Therapy Hot or Cold Pack Therapeutic Exercise Therapeutic Activities Hot or Cold Pack Manual Therapy Electrical Stimulation Therapeutic Exercise Therapeutic Activities Manual Therapy Hot or Cold Pack Therapeutic Exercise Therapeutic Activities Hot or Cold Pack Manual Therapy PT Evaluation Low Complexity Therapeutic Exercise Manual Therapy Advance Directives Directive Yes / No Effective Date File Name No Information Encounters Encounter Description Practice Location Reason(s) For Visit Diagnoses Date Provider Providers Copied on Encounter [facility] [address] [address], [place], [place], [id number], tel:[phone] Anand No Information 0 8202 0 Kwon Laron. . Referring Provider: Fox Boggs, [address] [place] [address] Office [address], [address]. tel:[phone] [facility] [address] [address], [place], [place], [id number], tel:[phone] Anand No Information 0 Lauren Mares. [address] [place] [address], [address], [place], [facility], . tel:[phone] Referring Provider: Fox Boggs, [address] [place] [address] Office Building [address], [address]. tel:[phone] [facility] [address] [address], [place], [place], [id number], tel:[phone] Arjay No Information Mar-2 2 0 Kwon Laron. . Referring Provider: Fox Boggs [address] [place] [address] Office Building [address], [address]. tel:[phone] [facility] [address] [address], [place], [place], [id number], [place] tel:[phone] Arjay No Information 0 Kwon Laron. . Referring Provider: Fox Boggs, [address] [place] [address] Office Building [address], [address]. tel:[phone] [facility] [address] [address], [place], [place], [id number], tel:[phone] Anand No Information Sep-1 0-202 0 Kwon Laron. . Referring Provider: Fox Boggs [address] [place] [address], [address]. tel:[phone] [place] [address], [address] [place] [address], [place], [place], [id number], tel:[phone] Arjay No Information Sep-0 3-202 0 Kwon Laron. . Referring Provider: Fox Boggs, [address] [place] [address], [address]. tel:[phone] [place] [address], [address] [place] [address], [place], [place], [id number], tel:[phone] Anand No Information Aug-2 7-202 0 Kwon Laron. . Referring Provider: Fox Boggs [address] [place] [address], [address]. tel:[phone] [place] [address], [address] [place] [address], [place], [place], [id number], [place] tel:[phone] Anand No Information Aug-2 0-202 0 Kwon Laron. . Referring Provider: Fox Boggs [address] [place] [address], [address]. tel:[phone] [place] [address], [address] [place] [address], [id number], tel:[phone] Arjay No Information Aug-1 3-202 0 Kwon Laron. . Referring Provider: Fox Boggs [address] [place] [address], [address]. tel:[phone] [place] [address], [address] [place] [address], [place], [id number], tel:[phone] Anand No Information Aug-0 6-202 0 Kwon Laron. . Referring Provider: Fox Boggs [address] [place] [address], [address]. tel:[phone] [facility], [address] [place], [place] [address], [place], [place], [id number], [place] tel:[phone] Anand No Information 0-202 0 Alannah Rivera. . Referring Provider: Fox Boggs, [address] [place] [address] Medical Office [facility] [address], [address]. tel:[phone] [place] [address] [address] [facility] [address], [place], [place], [id number], [place] tel:[phone] Arjay No Information 4 0 Gato Shepard. . Referring Provider: Fox Boggs, [address] [place] [address] Office [facility] [address], [address]. tel:[phone] [facility] [address] [place] [address], [place], [place], [id number], [place] tel:[phone] Anand No Information Sep-1 2-201 9 Kwon Laron. . Referring Provider: Marvin Powell, [address] [facility] [address], [place], [address]. tel:[phone] [place] [address], [address] [facility], [place], [place], [id number], [place] tel:[phone] Anand No Information Sep-1 0-201 9 Kwon Laron. . Referring Provider: Marvin Powell, [address] [facility] [address], [place], [address]. tel:[phone] [facility], [address] [facility], [place], [place], [id number], [place] tel:[phone] Arjay No Information Sep-0 5-201 9 Kwon Laron. . Referring Provider: Marvin Powell, [address] [facility] [address], [place], [address]. tel:[phone] [facility], [address] [facility], [place], [place], [id number], [place] tel:[phone] Arjay No Information 0 9 Kwon Laron. . Referring Provider: Marvin Powell, [address] [facility] [address], [place], [address]. tel:[phone] [place] [address], [address], [place], [place], [id number], [place] tel:[phone] Arjay No Information Feb- 9 Crowley Bao. . Referring Provider: Marvin Powell, [address] [place] [address], [place], [address]. tel:[phone] [place] [address], [address], [place], [place], [id number], [place] tel:[phone] Anand No Information 9 Kwon Laron. . Referring Provider: Marvin Powell, [address] [place] [address], [place], [address]. tel:[phone] [place] [address], [address], [place], [place], [id number], [place] tel:[phone] Anand No Information 9 Kwon Laron. . Referring Provider: Marvin Powell, [id number] [place] [address], [place], [address]. tel:[phone] [place] [address], [address], [place], [place], [id number], [place] tel:[phone] Anand No Information 9 Kwon Laron. . Referring Provider: Marvin Powell, [address] [facility] [address], [place], [address]. tel:[phone] [facility], [address], [place], [place], [id number], [place] tel:[phone] Anand No Information 9 Kwon Laron. . Referring Provider: Marvin Powell, [address] [facility] [address], [place], [address]. tel:[phone] [facility], [address] [place], [place] [address], [place], [place], [id number], tel:[phone] Arjay No Information 0 9 Kwonjose angel Larry. . Referring Provider: Marvin Powell, [address] [facility] [address], [place], [address]. tel:[phone] [facility], [address] [place], [place] [address] [address], [place], [place], [id number], tel:[phone] Anand No Information 0 9 Bharati Lau. [address] [facility], [address], [place], [place], [facility], . tel:[phone] Referring Provider: Marvin Powell, [address] [facility] [address], [place], [address]. tel:[phone] Family History Family Member Type Diagnosis Age At Onset No Information Payers Payer name Insurance type Covered republican ID lawson olivo(s) Olimpia CI [id number] Social History Type Description Quantity Date Captured Comments Sex Female Smoking Status No Information Chief Complaint And Reason For Visit No Information Reason For Referral Reason For Referral No Information History Of Present Illness Encounter Date Complaint History Of Prese nt Illness No Information Functional Status Date Functional Assessmen t No Information Instructions Date Instruction Additional Infor mation No Information Assessments Type Assessment Date No Information Patient Care Teams Name Effective Dates (start - stop) Status Members No Information
[2025-05-03 12:02] VITALS: BMI 18.6
--- NOTE | 2025-05-03 12:20 | SUR.PREOP ---
[facility] has started construction of its new state of the art ER which will open Spring 2026. With this, we anticipate parking may be a challenge for some our surgical patients and families. Parking spaces are limited but are available for all Surgical, obstetrics, and ER patients sharing this lot. If you arrive and find you are having a hard time finding a parking space, please note that we understand the challenges, please drive around the hospital and park near Hospital Entrance 1. When you enter this entrance, you can ask a volunteer to direct or take you back to the surgical waiting area to check in. We appreciate everyone?s understanding of these expected challenges while we build for your future. Report to the Outpatient Waiting Room, entrance under the green pavilion located off [address], at time __7am on date __05/10/25 . Planned Procedure Time: 9am. Time changes happen often and if your time is changed the preop area will call you the afternoon before. - You and your visitor will be asked to self-screen and do not enter if you have any COVID symptoms. Please call surgeon if you need to reschedule. - A mask is optional within the hospital at this time. Patients may have clear liquids (water, carbonated beverages, clear teas, apple juice) until 3 hours prior to surgery with a maximum of 20 ounces. - No food from midnight until time of surgery and no smoking, or chewing tobacco (or any form of nicotine). No chewing gum, candy or mints. Take only the following medications with a SIP of water on the morning of surgery:_None. DO NOT STOP ANY OF YOUR OTHER PRESCRIPTION MEDICATIONS PRIOR TO SURGERY EXCEPT THE FOLLOWING Hold all vitamins and supplements for 3 days per anesthesiologist. Medications to discontinue per physician __N/a_. Date to take last dose____N/a. Please no make-up, nail yi, hairspray, perfume, deodorant, or body powder the day of surgery.? No jewelry (including any body piercings) or valuables the day of surgery, leave them at home.? Please take a shower or bath the night before, or the morning of, surgery with an antibacterial soap.? Wear comfortable, loose fitting clothing.? Children are encouraged to wear pajamas. - Jewelry must be removed prior to entering the operating room.? Rings and piercings that are not removed may be cut off. - The hospital will not accept responsibility for valuables.? - Please leave all valuables, including medications, at home the day of surgery. If you are going home after surgery, a licensed company truck driver must drive you home.? - NO public transportation without another adult if you receive anesthesia. - We recommend that an adult stay with you for 24 hours following discharge. - We also recommend that you do not drive, make important decision, drink alcoholic beverages, or take any drugs that were not prescribed by your health care provider for at least 24 hours after your discharge time. Follow any additional instructions given to you from your surgeon. Telephone instructions given to __Rosalie and asked if any additional questions and then verbalized understanding. Patient advised to call surgeon office or pre surgery nurse liaison [phone] if any additional questions.
[2025-05-10] VITALS (9 sets, daily range): BP systolic 97–128; BP diastolic 64–92; PULSE 58–82; RESP 10–20; TEMP 36.4–36.7; O2SAT 99–100
--- OUTSIDE RECORDS SUMMARY | 2025-05-10 00:38 | XMS_ITS | Clinical Summary ---
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 Gender Identity Not on file Sexual Orientation [...] Standard) 2019 Regular Well Visit/Exam 18-64 2021 DTaP/Tdap/Td Vaccine (6 - Td or Tdap) 03/01/2025 03/01/2015, 09/04/2007, 11/19/2005, Additional history exists Covid-19 Vaccine (2 - 2024-2 6 season) 2025 02/15/2021 Influenza Vaccine (#1) 2025 9, 07/30/2006, 06/10/2006 Hepatitis B Screening Completed 10/02/2005 , 2003, 2003, Additional history exists Pneumococcal vaccine <65 Completed 006, 2003, 2003 Varicella Vaccines Completed 09/04/2007, 10/02/2005 HPV Vaccines Completed 03/07/2017, 03/05/2016 Meningococcal Vaccine Completed 09/06/2020, 015 Medical Devices Implanted Type Area Counter Control Operator Device Identifier Shelf Expiration Date Model / Serial / Lot [employer] End[employer] [id number] [place] Suture Microraptor Regenesorb Knotless Rigid - Sn/A - [id number] Implanted:Qty: 1 on 01/18/2020 by Fox Boggs MD at [facility] Other - see comments Right: Hip [employer] [id number] 03/15/2022 [id number] / N/A / [id number] [employer] [id number] [place] Suture Microraptor Regenesorb Knotless Rigid - Sn/A - [id number] Implanted:Qty: 1 on 01/18/2020 by Fox Boggs MD at [facility] Other - see comments Right: Hip [employer] [id number] 04/08/2022 [id number] / N/A / [id number] Synthes 214.880 4.5mm 8mm 80mm Self Tap Large Hexagonal Socket Cortical Screw - Sn/A - [id number] Implanted:Qty: 1 on 01/18/2020 by Fox Boggs MD at [facility] Screw Right: Hip Synthes I 214.880 / N/A / N/A Synthes 214.895 4.5mm 8mm 95mm Self Tap Large Hexagonal Socket Cortical Screw - Sn/A - [id number] Implanted:Qty: 1 on 01/18/2020 by Fox Boggs MD at [facility] Screw Right: Hip Synthes I 214.895 / N/A / N/A Synthes 214.870 4.5mm 8mm 70mm Self Tap Large Hexagonal Socket Cortex Screw Bone - Sn/A - [id number] Implanted:Qty: 1 on 01/18/2020 by Fox Boggs MD at [facility] Screw Right: Hip Synthes I 214.870 / N/A / N/A Synthes 214.860 4.5mm 8mm 60mm Self Tap Large Hexagonal Socket Cortical Screw - Sn/A - [id number] Implanted:Qty: 1 on 01/18/2020 by Fox Boggs MD at [facility] Screw Right: Hip Synthes I 214.860 / N/A / N/A Explanted Type Area Counter Control Operator Device Identifier Shelf Expiration Date Model / Serial / Lot Synthes 294.786 Schanz 5mm 200mm 80mm Self Drill Mr Conditional Screw External - Sn/A - [id number] Explanted:Qty: 1 on 01/18/2020 by Fox Boggs MD at [facility] Screw Right: Hip Synthes I 294.786 / N/A / N/A Description:Used for procedu re and removed at end. Synthes 292.26 Chana 2.5mm 285mm [place] Wire Fixation Stainless Steel - Sn/A - [id number] Explanted:Qty: 2 on 01/18/2020 by Fox Boggs MD at [facility] Wire Right: Hip Synthes I 292.26 / N/A / N/A Description:Used for procedu re and removed at end. Insurance ANTHEM ACCESS ANTHEM ACCESS CHOICE Member Subscriber Plan / Payer (Ef fective 2015-Present) Name:Rosalie Bolton Relation to Subscriber:Other Relationship Name:ROSY BOLTON Date of :1975 Payer ID:[id number] (NAIC) Type:H[employer]Pad Address: [address] [place] [phone] BLUE ACCESS OOS [facility] [place] [address] [employer] OOS ANTH[employer]s ACCESS Member Subscriber Plan / Payer (Ef fective 2015-Present) Name:Rosalie Bolton Relation to Subscriber:Other Relationship Name:ROSY BOLTON Subscriber ID:Not on file Date of :1975 Payer ID:[id number] (NAIC) Type:HackPad Address: [address] [facility] H[facility]/PPO Address: [address] [address] [place] [address] BLUE ACCESS OOS BLUE ACCESS [place] BLUE ACCESS OOS ANTH ACCESS Care Teams Waste Specialist Relationship Specialty Start Date End Date Paige Lorenzo MD PCP - General 10/11/17 Fox Boggs MD [address] [facility] [address] [place] [address] Surgeon Orthopedic Surgery 05/23/20
--- OUTSIDE RECORDS SUMMARY | 2025-05-10 00:38 | XMS_ITS | Encounter Summary ---
Author Organization [facility] Healthcare Address [address] [place] [address] Care Team Providers Care Roofing Apprentice Name Role Phone Paige Lorenzo MD Primary Care Pro vider Fox Boggs MD Unavailable [phone] Encounter Details Date Type Department Care Team (Late st Contact Info) Description 01/14/[address] 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
[2025-05-10 07:26] LABS: BEDSIDEPREGUCG Negative (Negative)
[2025-05-10] MEDS: ACETAMINOPHEN 500 MG TABLET 1000 MG PO (07:30)
--- NOTE | 2025-05-10 07:31 | WPDANESEPPF ---
Anes - Initial Pre Proc Eval Procedure: Operation Date: 05/10/25 09:00 Proposed Procedures p Diagnostic Laparoscopy - Tiago Travis MD Date/Time: 05/10/25 07:31 Surgeon: Tiago Travis MD Pre Op Diagnosis: Pelvic Pain Patient Data Age: 19 Gender: F Height: 1.57 m Weight: 47.1 kg Last Vital Signs Temp 36.7 C 05/10/25 07:15 Pulse 82 05/10/25 07:15 Resp 16 05/10/25 07:15 BP 121/64 05/10/25 07:15 Pulse Ox 100 05/10/25 07:15 O2 Del Method Room Air 05/10/25 07:15 Allergies Allergy/AdvReac Type Severity Reaction Status Date / Time No Known Allergies Allergy Verified 05/10/25 07:22 Home Medications ?Medication ?Instructions ?Recorded ?Confirmed ?Type No Home Medications 05/03/25 05/03/25 History Laboratory Tests 05/10/25 07:24 POC Urine HCG, Qual Negative (Negative) Patient hx anesthesia problems: none Family hx anesthesia problems: none Results Review: All pre-operative results and documents have been reviewed as part of the pre-operative evaluation. [facility] Social History Social History (Updated 05/10/25 @ 07:35 by Vikash Sesay DO) Years smoked: 5 Smoking status: Current every day smoker Tobacco type: e-cigarettes/vaping Smokeless tobacco user: other Alcohol intake: current Drinks per week: 3 Substance use: current Substance use type: marijuana Other substance usage details: daily Living arrangements: with family Gender identity (if verbalized by the patient): Female Spiritual care concerns: No Anes - Eval Final PreProcedure Day of Procedure 05/10/25 07:31 Patient weight: normal Heart: regular rate and rhythm Lungs: clear to auscultation Airway: Mallampati scale class 1 Neurological: alert and oriented Last oral intake: >/= 8 hours ASA classification: III Emergent: no Anesthetic plan: proceed Anesthesia type and monitoring: general ETT and standard monitoring Results Review: All pre-operative results and documents have been reviewed as part of the pre-operative evaluation. Informed Consent: The patient's anesthetic plan and its attendant risks and benefits were discussed with the patient/family/POA. Questions were solicited and answers provided to the satisfaction of the patient/family/POA.
[2025-05-10] MEDS: LACTATED RINGERS 1,000 ML 30 ML IV CONT (07:35)
[2025-05-10] MEDS: KETOROLAC 15 MG/ML VIAL (*BKC) IV PUSH (07:35)
--- NOTE | 2025-05-10 09:10 | P.HP_ITS ---
H&P: HPI History of Present Illness Date/Time: 05/10/25 09:10 Chief Complaint: Pelvic pain Narrative: This patient is a 19-year-old female with pelvic pain consistent with endometriosis. We have agreed to perform diagnostic laparoscopy. She understands risks, benefits, and alternatives. She has completed informed consent process is ready to proceed. The patient understands the details of the procedure. The procedure has been explained in detail. She understands the risks. She understands that injuries may occur that result in hospitalization, more surgery, and severe illness. She understands risk of hemorrhage and infection. She denies any chest pain or shortness of breath. She denies any nausea, vomiting, fever, chills. Review of Systems Review of Systems: All systems reviewed & are unremarkable except as noted in HPI and below Constitutional: Constitutional: Denies chills, Denies fatigue, Denies fever(s) and Denies weakness Eyes: Eyes: Denies blurry vision, Denies change in vision, Denies loss of p eripheral vision, Denies loss of vision, Denies other visual disturbances and Denies eye pain ENT: Denies vertigo, Denies dizziness, Denies hearing loss, Denies mouth pain, Denies nasal obstruction, Denies neck mass and Denies neck pain Cardiovascular: Cardiovascular: Denies chest pain, Denies diaphoresis, Denies syncope, Denies leg edema and Denies dyspnea Respiratory: Respiratory: Denies chest congestion, Denies cough, Denies hemoptysis, Denies dyspnea and Denies wheezing Gastrointestinal: Gastrointestinal: Denies abdominal pain, Denies constipation, Denies diarrhea, Denies nausea and Denies vomiting Genitourinary: Genitourinary: Denies hematuria, Denies change in libido, Denies nocturia, Denies genital lesions, Denies flank pain and Denies urinary urgency Musculoskeletal: Musculoskeletal: Denies abnormal gait, Denies back pain, Denies myalgias, Denies arthralgias, Denies joint swelling, Denies muscle weakness and Denies neck pain Integumentary/Breasts: Skin/Breast: Denies swelling, Denies breast pain, Denies breast mass, Denies dry skin, Denies nipple discharge, Denies unusual bruising and Denies jaundice Neurologic: Denies Neuro-related abnormal movements, Denies Abnormal speech present, Denies abnormal gait, Denies behavioral changes, Denies confusion, Denies vertigo, Denies dizziness, Denies syncope, Denies loss of vision, Denies memory loss, Denies convulsions and Denies weakness Psychiatric: Psychiatric: Denies abnormal sleep pattern, Denies behavioral changes, Denies change in libido, Denies confusion, Denies depression, Denies anhedonia and Denies memory loss Endocrine: Endocrine: Reports no additional endocrine complaints, Denies change in libido and Denies fatigue Hematologic/Lymphatic: Hematologic/Lymphatic: Reports no additional hematologic/lymphatic complaints Allergic/Immunologic: Allergic/Immunologic: Reports no additional allergic/immunologic complaints and Denies wheezing [facility] Social History Social History (Updated 05/10/25 @ 07:35 by Vikash Sesay DO) Years smoked: 5 Smoking status: Current every day smoker Tobacco type: e-cigarettes/vaping Smokeless tobacco user: other Alcohol intake: current Drinks per week: 3 Substance use: current Substance use type: marijuana Other substance usage details: daily Living arrangements: with family Gender identity (if verbalized by the patient): Female Spiritual care concerns: No Meds Home Medications and Allergies Home Medications ?Medication ?Instructions ?Recorded ?Confirmed ?Type No Home Medications 05/03/25 05/03/25 H istory Allergies Allergy/AdvReac Type Severity Reaction Status Date / Time No Known Allergies Allergy Verified 05/10/25 07:22 Vital Signs Vital Signs - 24 hr 05/10/25 07:15 Temperature 98.0 F Pulse Rate 82 Respiratory Rate 16 Blood Pressure 121/64 Pulse Oximetry 100 Oxygen Delivery Room Air Exam Const: General: cooperative, healthy appearing, comfortable and no acute distress Orientation/consciousness: oriented to person, oriented to place and oriented to time HENMT: Head: normal to inspection Ears: external ears normal Face/Nose/Sinus: Normal external nose present and normal facial exam Face and sinus: normal facial exam Eyes: General: appearance normal, both eyes and all related structures Neck: Neck: normal visual inspection, trachea midline and supple Resp: Auscultation: clear to auscultation bilaterally, no crackles, no rales, no rhonchi and no wheezes Cardio: Rate: regular rate Rhythm: regular rhythm Heart sounds: no click, no murmurs and no rubs GI: GI Palp: No abdominal tenderness, No Soft to palpation, No Tenderness to palpation present (GI) and No Palpable mass present Auscultation: normal bowel sounds Skin: General skin exam: normal color and no rashes or lesions noted Neuro: General: oriented to person, oriented to place and oriented to time Extrem: General: normal to inspection, no joint enlargement, no clubbing, cyanosis or edema, no pedal edema and no calf tenderness Psych: Appearance: grossly normal Mental Status: mental status grossly normal Speech and movement: Normal speech and movement present Assessment and Plan Assessment and plan (1) Pelvic pain: Code(s): R10.20 - Pelvic and perineal pain unspecified side Status: Acute Plan This patient is a 19-year-old female with pelvic pain consistent with endometriosis. We have agreed to perform diagnostic laparoscopy. She understands risks, benefits, and alternatives. She has completed informed consent process is ready to proceed.
--- NOTE | 2025-05-10 09:12 | WPDHPUPDATE1 ---
History and Physical Update Update Date/Time: 05/10/25 09:12 History and Physical has been reviewed, including an updated exam of the patient. There are NO changes in the patient's condition. Risks, benefits, and alternatives have been discussed and questions answered. Patient agrees to proceed with procedure.
--- NOTE | 2025-05-10 09:58 | S_PTH ---
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
--- NOTE | 2025-05-10 10:29 | W.PM.PROC2 ---
Procedure Note - Detailed Date of Procedure 05/10/25 Pre-op Diagnosis Pelvic Pain Post-op Diagnosis Same (Hemoperitoneum and endometriosis) Procedure Performed Diagnostic laparoscopy Surgeon Tiago Travis MD Anesthesia General Indications Pelvic pain Findings HEMOPERITONEUM, Small 3mm endometriosis lesion in the right perirectal peritoneum of the posterior cul-de-sac, Deep. Description of Procedure The patient was taken to the operating room. She was prepped and draped in the dorsal lithotomy position after induction general anesthesia. A 5 mm incision was made with a scalpel on the abdominal skin in the left upper quadrant of the abdomen. A 5 mm trocar was inserted into the intra-abdominal cavity under direct visualization the scope. In the same fashion a 5 mm left lower quadrant trocar was inserted and a 5 mm infraumbilical trocar was inserted. Hemoperitoneum was noted. It was evacuated using suction. Endometrial implant in the posterior cul-de-sac adjacent to the rectum was resected using LigaSure cautery. The pelvis was irrigated. The pneumoperitoneum was reduced. The trocars were removed. Skin was closed with subcuticular 4 micro. The patient's incisions were covered with Dermabond. She was taken recovery room in stable condition. Sponge lap and needle counts were correct x2. Complications No immediate complications Condition Stable Disposition Same day
[2025-05-10] MEDS: oxyCODONE HCL (*CRX) 5 MG TAB IR PO (11:42)
== END 2025-05-10 12:11 | disposition home or self-care (01) ==
PROVIDERS: Visit Provider Obstetrics & Gynecology
PROC: (CPT 49320; principal; 2025-05-10 09:00)
DX: K66.8 Other specified disorders of peritoneum (principal); G89.18 Other acute postprocedural pain; F17.290 Nicotine dependence, other tobacco product, uncomplicated; F12.90 Cannabis use, unspecified, uncomplicated
CPT/HCPCS: 58662; 88305; A9270; J1100; J1200; J1885; J2003; J2250; J2405; J2704; J3010; J7030; J7120

== ENCOUNTER 2025-05-13 16:51 | Emergency (ER) | payer BC, SELFPAY ==
[2025-05-13] VITALS (11 sets, daily range): BP systolic 108–130; BP diastolic 72–84; PULSE 55–81; RESP 14–21; TEMP 36.9; O2SAT 84–100
--- NOTE | ~2025-05-13 | CT_ITS ---
CTA chest PE abdomen pel HISTORY:SOB, ab pain, post op . COMPARISON: None. 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 Post-processing on an independent workstation was performed to reconstruct MIP images for evaluation of the thoracic vasculature. FINDINGS: There is no pulmonary embolism, aortic dissection, thoracic aneurysm or pericardial fluid. The lung parenchyma is clear. No pleural effusion or pneumothorax is noted. There is no axillary, mediastinal or hilar adenopathy. Limited evaluation of the upper abdomen demonstrates no gross abnormalities. Review of bone windows demonstrates no osteoblastic or lytic lesions. IMPRESSION: There is no pulmonary embolism, aortic dissection, pericardial fluid or thoracic aneurysm. No acute lung findings. CTA chest PE abdomen pel INDICATION:SOB, ab pain, post op . COMPARISON: None. TECHNIQUE: Axial images of the abdomen and pelvis were obtained following infusion of 100 mL Isovue 370. Dose optimization technique was utilized. FINDINGS: The lung bases are clear. The liver parenchyma is unremarkable. No intrahepatic mass or ductal dilatation is evident. The gallbladder is unremarkable. The pancreas and spleen are normal in appearance. The adrenal glands are symmetric in size. The kidneys demonstrate symmetric uptake and excretion of contrast. Right renal cyst measures 7.3 mm There is no solid mass. There is no hydronephrosis. Evaluation of the stomach and bowel loops are limited due to lack of oral contrast. The appendix is normal in appearance. The bladder and rectum are normal. The uterus and both adnexa are unremarkable. No free intraperitoneal fluid or air is evident. There is no significant retroperitoneal lymphadenopathy. The aorta, visceral vessels and renal arteries demonstrate normal caliber and patency. The lower thoracic and lumbar vertebrae are in normal alignment. IMPRESSION: No acute abnormality is noted in the abdomen and pelvis. All CT scans at this facility are performed using low dose modulation techniques as appropriate to perform exam including the following: automated exposure control; use of iterative reconstruction technique; adjustment of the mA and/or kV according to patient size (this includes techniques or standardized protocols for targeted exams where dose is matched to indication/reason for exam). Reviewed, dictated and finalized at location S. IMPRESSION: There is no pulmonary embolism, aortic dissection, pericardial fluid or thoraci c aneurysm. No acute lung findings. CTA chest PE abdomen pel INDICATION:SOB, ab pain, post op . COMPARISON: None. TECHNIQUE: Axial images of the abdomen and pelvis were obtained following infu jaylin of 100 mL Isovue 370. Dose optimization technique was utilized. FINDINGS: The lung bases are clear. The liver parenchyma is unremarkable. No intrahepatic mass or ductal dilatation is evident. The gallbladder is unremarkable. The pancreas and spleen are rogelio l in appearance. The adrenal glands are symmetric in size. The kidneys demonstrate symmetric uptake and excretion of contrast. Right renal cyst measures 7.3 mm There is no solid mass. There is no hydronephrosis. Evaluation of the stomach and bowel loops are limited due to lack of oral contr ast. The appendix is normal in appearance. The bladder and rectum are normal. The uterus and both adnexa are unremarkable. No free intraperitoneal fluid or air is evident. There is no significant retr operitoneal lymphadenopathy. The aorta, visceral vessels and renal arteries demonstrate normal caliber and p atency. The lower thoracic and lumbar vertebrae are in normal alignment. IMPRESSION: No acute abnormality is noted in the abdomen and pelvis. All CT scans at this facility are performed using low dose modulation techniqu es as appropriate to perform exam including the following: automated exposure c ontrol; use of iterative reconstruction technique; adjustment of the mA and/or kV according to patient size (this includes techniques or standardized protocol s for targeted exams where dose is matched to indication/reason for exam).
[2025-05-13] MEDS: LACTATED RINGERS 2,000 ML 999 ML IV CONT (17:09)
[2025-05-13] MEDS: NALOXONE HCL 0.4 MG/ML VIAL IV PUSH (17:19)
[2025-05-13 17:51] LABS: Add Urine Microscopic? NO; Appearance Urine Clear (Clear); Glucose Urine UA Negative (Negative); Hematocrit 35.4 % (37.0-47.0); Hemoglobin 11.4 g/dL (12.0-15.0); Immature Granulocyte Percent A 0.3 % (0-0.5); Leukocyte Esterase Ur Negative LEU/UL (Negative); Lymphocytes Absolute Auto 2.12 K/mm3 (0.9-3.2); Mean Corpuscular HGB Conc 32.2 g/dl (32-36); Mean Corpuscular Hemoglobin 27.1 pg (26-34); Mean Corpuscular Volume 84.1 fl (80-100); Nitrate Urine Negative (Negative); Nucleated Red Blood Cells Absolute Auto 0.000 K/mm3 (0.0-0.012); Nucleated Red Blood Cells Perc 0.0 % (0.0-0.2); Platelet Count Result 214 k/mm3 (150-375); Red Blood Count 4.21 M/mm3 (4.2-5.4); Specific Grav Ur 1.009 (1.001-1.035); White Blood Count 6.0 K/mm3 (4.5-10.0)
[2025-05-13 17:53] LABS: BEDSIDEPREGUCG Negative (Negative)
[2025-05-13 18:01] LABS: INR 1.1; Prothrombin Time 13.9 Seconds (11.1-14.7)
[2025-05-13 18:02] LABS: Partial Thromboplastin Time 27.9 Seconds (22.3-36.8)
[2025-05-13 18:05] LABS: Alanine Aminotransferase 13 U/L (6-35); Albumin Level 4.0 g/dL (3.5-5.1); Alkaline Phosphatase 42 U/L (38-126); Anion Gap 7 mmol/L (4-12); Aspartate Amino Transferase 24 U/L (14-36); Bilirubin,Total 0.4 mg/dL (0.2-1.3); Blood Urea Nitrogen 10 mg/dL (7-17); Calcium 9.4 mg/dL (8.4-10.2); Carbon Dioxide 25 mmol/L (22-30); Chloride 105 mmol/L (98-107); Estimated CRCL calculation 84 ml/min; Estimated Glomerular Filt Rate > 60; Glucose 83 mg/dL (65-110); Potassium 3.6 mmol/L (3.4-5.0); Sodium 137 mmol/L (137-145); Total Protein 6.6 g/dL (6.3-8.2)
--- NOTE | 2025-05-13 18:46 | ED_ITS ---
HPI - General Adult General Chief complaint: Altered Mental Status Stated complaint: AMS/syncope, recent sx History of Present Illness HPI narrative: 19-year-old female presents to the emergency department for evaluation for increased generalized weakness. Patient did have diagnostic laparoscopy on 05/10 for hemoperitoneum secondary to to be choses. She reports that she has been back at work and had been feeling improved and then began having increased generalized weakness today. Patient was slow to respond on initial evaluation but patient was alert. Patient was treated with 0.4 mg of IV Narcan and patient's respiratory status did improve. Related Data Allergies Allergy/AdvReac Type Severity Reaction Status Date / Time No Known Allergies Allergy Verified 05/10/25 07:22 Review of Systems 2 Review of Systems: All systems reviewed & are unremarkable except as noted in HPI and below [facility] Social History Social History (Updated 05/10/25 @ 07:35 by Vikash Sesay DO) Years smoked: 5 Smoking status: Current every day smoker Tobacco type: e-cigarettes/vaping Smokeless tobacco user: other Alcohol intake: current Drinks per week: 3 Substance use: current Substance use type: marijuana Other substance usage details: daily Living arrangements: with family Gender identity (if verbalized by the patient): Female Spiritual care concerns: No Exam 2 Narrative: APPEARANCE: Tired appearing HEAD: normocephalic, atraumatic. EYES: PERRLA/EOMI, conjunctivae clear. NOSE: Normal no drainage EARS:TMS clear with good light reflex. THROAT: Pharynx clear, no exudate. NECK: Supple. No adenopathy, no masses. RESPIRATORY: Airway patent, respirations nonlabored. Clear to auscultation bilaterally, no rales, rhonchi, wheezing. CARDIOVASCULAR: Regular rate and rhythm without murmurs rubs or gallops. ABDOMINAL: Soft, nontender, nondistended, normal bowel sounds MUSCULOSKELETAL: Moves all extremities. Strength/ROM intact, No edema, No calf tenderness. NEURO: Alert. Cranial nerves II through XII intact. Good gait. Good coordination SKIN: Warm, dry. Normal Color Course Vital Signs Vital signs: Vital Signs Pulse Rate 73 05/13/25 16:51 Respiratory Rate 20 05/13/25 16:51 Blood Pressure 130/84 05/13/25 16:51 Pulse Oximetry 97 05/13/25 16:51 Oxygen Delivery Room Air 05/13/25 16:51 Temperature 98.4 F 05/13/25 17:04 Pulse Rate 79 05/13/25 18:44 Respiratory Rate 21 H 05/13/25 18:44 Blood Pressure 120/77 05/13/25 17:46 Pulse Oximetry 99 05/13/25 18:44 Oxygen Delivery Nasal Cannula 05/13/25 17:12 Oxygen Flow Rate 2 05/13/25 17:12 Medical Decision Making MDM Narrative Medical decision making narrative: 19-year-old female present to the emergency department for evaluation for increased generalized weakness. Patient was afebrile with no leukocytosis hemoglobin 11.4. INR of 1.1. Lactic acid of 1.4. No significant abnormalities on her CMP UA was negative for infection. Patient was treated with Narcan and did have an improvement of her stress status. Patient was also treated with IV fluids. CTA PE abdomen pelvis was ordered due to her initial hypoxia prior to the Narcan. Patient states she did not have any narcotic pain medications since yesterday. Patient does admit to smoking some THC today. No acute abnormalities were noted on the CT scan. Patient family updated the results of the workup they are comfortable the plan for discharge Differential Diagnosis Differential Diagnosis: Intra-abdominal hemorrhage, medication adverse reaction, dehydration, sepsis, pneumonia, pulmonary embolism Vital Signs Vital Signs: Vital Signs Pulse Rate 73 05/13/25 16:51 Respiratory Rate 20 05/13/25 16:51 Blood Pressure 130/84 05/13/25 16:51 Pulse Oximetry 97 05/13/25 16:51 Oxygen Delivery Room Air 05/13/25 16:51 Temperature 98.4 F 05/13/25 17:04 Pulse Rate 79 05/13/25 18:44 Respiratory Rate 21 H 05/13/25 18:44 Blood Pressure 120/77 05/13/25 17:46 Pulse Oximetry 99 05/13/25 18:44 Oxygen Delivery Nasal Cannula 05/13/25 17:12 Oxygen Flow Rate 2 05/13/25 17:12 Lab Data Lab results reviewed: Yes I reviewed the patient's lab results. 05/13/25 17:41 05/13/25 17:41 Labs: Lab Results 05/13/25 05/13/25 Range/Units 17:41 17:51 WBC 6.0 (4.5-10.0) K/mm3 RBC 4.21 (4.2-5.4) M/mm3 Hgb 11.4 L (12.0-15.0) g/dL Hct 35.4 L (37.0-47.0) % MCV 84.1 (80-100) fl MCH 27.1 (26-34) pg MCHC 32.2 (32-36) g/dl RDW 12.6 (11.5-14.5) % Plt Count 214 (150-375) k/mm3 MPV 10.4 (7.4-10.4) fl Immature Gran % (Auto) 0.3 (0-0.5) % Neut % (Auto) 56.5 (45.5-73.1) % Lymph % (Auto) 35.1 (18.3-44.2) % [place] % (Auto) 7.1 (2.6-8.5) % Eos % (Auto) 0.5 (0-4.4) % Baso % (Auto) 0.5 (0.2-1.2) % Lymph # (Auto) 2.12 (0.9-3.2) K/mm3 [place] # (Auto) 0.4 (0.1-0.6) K/mm3 Eos # (Auto) 0.0 (0-0.3) K/mm3 Baso # (Auto) 0.0 (0.0-0.1) K/mm3 Abs Immat Gran (auto) 0.02 (0.00-0.031) K/mm3 Absolute Neuts (auto) 3.4 (1.3-6.7) K/mm3 Absolute Nucleated RBC 0.000 (0.0-0.012) K/mm3 Nucleated RBC % 0.0 (0.0-0.2) % PT 13.9 (11.1-14.7) Seconds INR 1.1 APTT 27.9 (22.3-36.8) Seconds Sodium 137 (137-145) mmol/L Potassium 3.6 (3.4-5.0) mmol/L Chloride 105 (98-107) mmol/L Carbon Dioxide 25 (22-30) mmol/L Anion Gap 7 (4-12) mmol/L BUN 10 (7-17) mg/dL Creatinine 0.72 (0.7-1.0) mg/dL Estim Creat Clear Calc 84 ml/min Estimated GFR > 60 (59 - ) Glucose 83 (65-110) mg/dL Lactic Acid 1.4 (0.7-2.0) mmol/L Calcium 9.4 (8.4-10.2) mg/dL Total Bilirubin 0.4 (0.2-1.3) mg/dL AST 24 (14-36) U/L ALT 13 (6-35) U/L Alkaline Phosphatase 42 (38-126) U/L Total Protein 6.6 (6.3-8.2) g/dL Albumin 4.0 (3.5-5.1) g/dL Urine Color Yellow (Yellow) Urine Appearance Clear (Clear) Urine pH 7.5 (5.0-9.0) Ur Specific [place] 1.009 (1.001-1.035) Urine Protein Negative (Negative) mg/dL Urine Glucose (UA) Negative (Negative) mg/dL Urine Ketones Negative (Negative) mg/dL Ur Blood (Man) Negative (Negative) Urine Nitrate Negative (Negative) Urine Bilirubin Negative (Negative) Urine Urobilinogen 0.2 (<2.0) mg/dL Leukocyte Esterase Rfl Negative (Negative) BRIGID/UL POC Urine HCG, Qual Negative (Negative) Imaging Data Radiologist's impression: Impressions Chest/Abdomen/Pelvis CTA 05/13/25 18:39 IMPRESSION: There is no pulmonary embolism, aortic dissection, pericardial fluid or thoracic aneurysm. No acute lung findings. CTA chest PE abdomen pel INDICATION:SOB, ab pain, post op . COMPARISON: None. TECHNIQUE: Axial images of the abdomen and pelvis were obtained following infusion of 100 mL Isovue 370. Dose optimization technique was utilized. FINDINGS: The lung bases are clear. The liver parenchyma is unremarkable. No intrahepatic mass or ductal dilatation is evident. The gallbladder is unremarkable. The pancreas and spleen are normal in appearance. The adrenal glands are symmetric in size. The kidneys demonstrate symmetric uptake and excretion of contrast. Right renal cyst measures 7.3 mm There is no solid mass. There is no hydronephrosis. Evaluation of the stomach and bowel loops are limited due to lack of oral contrast. The appendix is normal in appearance. The bladder and rectum are normal. The uterus and both adnexa are unremarkable. No free intraperitoneal fluid or air is evident. There is no significant retroperitoneal lymphadenopathy. The aorta, visceral vessels and renal arteries demonstrate normal caliber and patency. The lower thoracic and lumbar vertebrae are in normal alignment. IMPRESSION: No acute abnormality is noted in the abdomen and pelvis. All CT scans at this facility are performed using low dose modulation techniques as appropriate to perform exam including the following: automated exposure control; use of iterative reconstruction technique; adjustment of the mA and/or kV according to patient size (this includes techniques or standardized protocols for targeted exams where dose is matched to indication/reason for exam). Discharge Plan Discharge Clinical Impression: Generalized weakness, Adverse drug reaction Patient Disposition: Home Condition: Stable Instructions: Antibiotic Form Additional Instructions: Drink plenty fluids, avoid narcotic pain medication. Have close follow-up with OB [facility]. If you have any worsening symptoms then please call or return to the emergency department. Patient Language: Libyan Prescriptions: No Action hydrocodone-acetaminophen 5-325 mg tablet 1 - 2 tablet PO Q6H PRN (Reason: pain) Qty: 10 0RF Follow-up/Referrals: PHYSICIAN,INTELLECTUAL PROPERTY LEGAL ASSISTANT [Primary Care Provider, Internal Medicine]
== END 2025-05-13 19:21 | disposition home or self-care (01) ==
PROVIDERS: Emergency Provider Emergency Medicine
DX: R53.1 Weakness (principal); T50.905A Adverse effect of unspecified drugs, medicaments and biological substances, initial encounter; F17.290 Nicotine dependence, other tobacco product, uncomplicated; F12.90 Cannabis use, unspecified, uncomplicated
CPT/HCPCS: 36415; 71275; 74177; 80053; 81003; 81025; 83605; 85025; 85610; 85730; 96361; 96374; 99284; J2312; J7120; Q9967

== ENCOUNTER 2025-07-13 15:33 | Emergency (ER) | payer BC, SELFPAY ==
--- NOTE | ~2025-07-13 | US_ITS ---
US transvaginal INDICATION: r ovarian cyst, poss torsion . COMPARISON: None. TECHNIQUE: Transvaginal ultrasound of the pelvis was performed. FINDINGS: The uterus measures 7.5 x 3.8 x 4.9 cm. It demonstrates normal echotexture and contour. There is a IUD within the uterus. The right ovary measures 4.7 x 1.9 x 4.2 cm. The left ovary measures 3.1 x 2.1 x 2.3 cm. No free fluid is seen. Visualized portions of the bladder are normal. Anderson scale, color Doppler, and spectral waveform analysis of the ovaries was performed. There is symmetric arterial and venous flow bilaterally. Impression: Normal bilateral ovarian Doppler. No evidence of ovarian torsion. IMPRESSION: The uterus and ovaries are unremarkable. There is no free fluid in the cul-de-sac. IUD is in the uterus. Reviewed, dictated and finalized at location S. TEACHER Impression: Normal bilateral ovarian Doppler. No evidence of ovarian torsion.
[2025-07-13 15:39] VITALS: BP 109/69; PULSE 85; RESP 16; TEMP 36.7; O2SAT 97
--- OUTSIDE RECORDS SUMMARY | 2025-07-13 17:58 | XMS_ITS | Continuity of Care Document ---
Author Organization [facility] [place] Address [address] [place] [address] Assessment No assessment recorded. Plan of Treatment Reminders Order Date Submit Date Provider Last Modified By Organization Details Last Modified Time Details Appointments U/S F/U 025 02:15PM Shelly ROD MD Not available Not available Not available Lab None record ed. Referral None record ed. Procedures None record ed. Surgeries None record ed. Imaging None record ed. Medication Orders None record ed. Patient TargetsNo targets recorded. Patient InstructionsNo instructions recorded. Reason for Referral None Reported. Results Created Date Observation Date Name Description Value Unit Range Abnormal Flag Note LastModifiedBy Organization Detail LastModifiedTime 07/12/20 25 07/12/2025 US, trans vagin al No observ ation record ed. [email or web address] [place] [address], [place], [address], 07/12/2025 18:20:13 07/12/20 25 07/12/2025 US, trans vagin al No observ ation record ed. [email or web address] Claudia [address], [place], [address], 07/13/2025 11:11:22 Result Notes None recorded. Procedures Surgical History Date Name Laterality Status Provider Name and Address Organization Details Recorded Time 05/25/20 25 IUD Insertion completed Margo Eaton [facility] 05/25/2025 14:09:44 05/10/20 LAPAROSCOPY, DIAGNOSTIC (SURG) completed Jennifer Mclean [facility] 05/10/2025 14:28:38 07/28/19 22 procedure on clavicle completed [facility] 03/25/2025 12:32:07 07/28/19 19 procedure on hip completed [facility] 03/25/2025 12:31:44 07/28/19 11 tonsillectomy and adenoidectomy completed [facility] 03/25/2025 12:31:30 Imaging Results None recorded. Procedure Notes None recorded. Medical Equipment None Reported. Allergies No known drug allergies Medications Name Sig Start Date Stop Date Status Note LastModified by Organization Details LastModified Time metronidazo le 0.75 % (37.5 mg/5 gram) vaginal gel Insert 1 applicato rful every day by vaginal route. 2024 active Not Available Not Available Not Avai lable SSD 1 % topical cream APPLY TWO TIMES DAILY 03/25 completed Not Available Not Available Not Available amoxicillin 875 mg-potassiu m clavulanate 125 mg tablet TAKE 1 TABLET BY MOUTH TWICE DAILY FOR 7 DAYS 03/25 completed Not Available Not Available Not Available Kyleena 17.5 mcg/24 hr (up to 5 years) 19.5 mg intrauterin e device Take 1 device by intrauter ine route. 2024 active Not Available Not Available Not Avai lable Vitals Date Recorded Body height Body mass index (BMI) Body weight Systolic And Diastolic Provider Name and Address Organization Details Last Updated DateTime 05/16/2025 157.48 cm 18.3 kg/m2 95336.24 g 122/86 mm[Hg] Christiana Lira [facility] 05/16/2025 11:48:10 Social History Question Answer Notes LastModified by Organizat ion Details LastModified Time Tobacco Smoking Status Never Smoker [place] E[facility] 03/25/2025 12:31:11 In The 14 Days Before Symptom Onset, Have You Had Close Contact With A Laboratory-confirm ed COVID-19 While That Case Was Ill? No [email or web address] Information n ot available 03/25/2025 In The 14 Days Before Symptom Onset, Have You Had Close Contact With A Person Who Is Under Investigation For COVID-19 While That Person Was Ill? No [email or web address] Information not available 03/25/2025 Have You Been To An Area Known To Be High Risk For COVID-19? No Information not available 03/25/2025 Sex: Unknown Functional Status None recorded. Mental Status None recorded. Family History Relationship Description Onset Age of this Age Resolved Age Notes LastModified by Organization Details LastModified Time Father No current problems or disability [email or web address] Not available 04/11 12:43:24 Mother No current problems or disability [email or web address] Not available 04/11 12:43:24 Medical History Condition Response Allergies (Food, seasonal, environmental ) N Other N Drug/Latex Allergies/Reactions N Breast Cancer N Blood Transfusion N Lung Disease N Dermatologic Disorders N Defects or Inherited Disease N Breast Problem N Gestational Diabetes N Hematologic disorders N Anesthesia Complications N History of STI N Deep Vein Thrombosis N Polycystic ovary syndrome N Anxiety Disorder N Autoimmune disease N Arthritis N Polyps N Infertility N History of abnormal pap N Acid Reflux (GERD) N Cancer N Varicosities N Stroke N Neurologic/Epilepsy N Endometriosis N High Cholesterol N Headaches N Fibromyalgia N Kidney Disease N Heart Problems N Thyroid Problems N Kidney or Bladder Problems N GI Problems N Eating Disorder N Anemia N Art (IVF or FET) N Psychiatric Illness N Ovarian Cancer N Diabetes N Pulmonary (TB, Asthma) N Hepatitis/Liver Disease N No Past Medical History Y Eczema N Urinary Tract Infection N Abuse/Domestic Violence N Asthma N Trauma/Violence N Depression/ depression N Heart Disease N Pre-Eclampsia N Hypertension N Osteoporosis N Thrombophilias N Gynecological History Statement/Question Response Flow Heavy Date of LMP 07/10/2025 Was last menstrual period normal N STIs/STDs N HPV Vaccine Y Current Control Method None Are cycles usually normal N Sexually Active? Y Menses Monthly N Age of first menstrual cycle 10 Date of Last Pap Smear Sexual Problems? N LMP Definite Obstetrics History GPAL:G 0 P 0 0 0 0 Past Encounters Encounter ID Performer Location Encounter Start Date Encounter Closed Date Diagnosis/Indication Diagnosis SNOMED-CT Code Diagnosis ICD10 Code Diagnosis IMO Codes Diagnosis Note [id number] Tiago Rod MD [place] [address] [address] 05/16/2025 11:36:06 05/16/2025 14:42:26 Postoperative visit [id number] Z48.89 [id number] this patient is a 19-year-ol d female who presents for postop follow-up. She was diagnosed with hemoperito neum and a small endometria l implant near the rectum /Posterior cul-de-sac . Discussed hormonal contracept andria to diminish hemoperito neum. We agreed to Kyleena IUD. She will return for IUD insertion. Health Concerns Section Related Observation LastModified by Organization Detai ls LastModified Time None Recorded Concern Status LastModified by Organization Details LastModified Time None Recorded Payers Encounter Date Sequence Insurance Name Policy Number Policy Suggs Covered Member ID Suggs Member ID Guarantor Name 05/16/2025 1 [facility] [id number] Fady Fragoso [id number] Rosalie Fragoso Notes Date Note Type Note Provider Name and Address Organization Details Recorded Time 05/16/2025 text/html this patient is a 19-year-old female who presents for postop follow-up. She was diagnosed with hemoperitoneum and a small endometrial implant near the rectum /Posterior cul-de-sac. Discussed hormonal contraceptive to diminish hemoperitoneum. We agreed to Kyleena IUD. She will return for IUD insertion. Tiago Rod MD [address], [place], [address], [facility] 05/16/2025 14:29:06 OBGyn Episode No OBEpisode recorded.
--- OUTSIDE RECORDS SUMMARY | 2025-07-13 17:58 | XMS_ITS | Continuity of Care Document ---
Author Organization [facility] [place] Address [address] [place] [address] Assessment No assessment recorded. Plan of Treatment [...] al No observ ation record ed. [email or web address] [place] [address], [place], [address], 07/12/2025 18:20:13 07/12/20 25 07/12/2025 US, trans vagin al No observ ation record ed. [email or web address] Claudia [address], [place], [address], 07/13/2025 11:11:22 Result Notes None recorded. Procedures Surgical History Date Name Laterality Status Provider Name and Address Organization Details Recorded Time 05/25/20 25 IUD Insertion completed Margo Eaton [facility] 05/25/2025 14:09:44 05/10/20 LAPAROSCOPY, DIAGNOSTIC (SURG) completed Jennifer Mclean [facility] 05/10/2025 14:28:38 07/28/19 22 procedure on [...] height Body mass index (BMI) Body weight Provider Name and Address Organization Details Last Updated DateTime 07/11/2025 157.48 cm 18.7 kg/m2 23194.14 g Akilah Bangura [facility] 07/11/2025 17:20:39 Social History Question Answer Notes LastModified by Organizat ion Details LastModified Time Tobacco Smoking Status Never Smoker Margo Uma [facility] 03/25/2025 12:31:11 In The 14 Days Before Symptom Onset, Have You Had Close Contact With A Laboratory-confirm ed COVID-19 While That Case Was Ill? No [email or web address] Information n ot available 03/25/2025 In The 14 Days Before Symptom Onset, Have You Had Close Contact With A Person Who Is Under Investigation For COVID-19 While That Person Was Ill? No Information not available 03/25/2025 Have You Been To An Area Known To Be High Risk For COVID-19? No [email or web address] Information not available 03/25/2025 Sex: Unknown Functional [...] (Food, seasonal, environmental ) N Other N Breast Cancer N Drug/Latex Allergies/Reactions N Blood Transfusion N Dermatologic Disorders N Lung Disease N Defects or Inherited Disease N Breast Problem N Gestational Diabetes N Hematologic disorders N Anesthesia Complications N History of STI N Deep Vein Thrombosis N Polycystic ovary syndrome N Anxiety Disorder N Autoimmune disease N Arthritis N Infertility N Polyps N Acid Reflux (GERD) N History of abnormal pap N Cancer N Stroke N Varicosities N Neurologic/Epilepsy N Endometriosis N High Cholesterol N Headaches N Fibromyalgia N Kidney Disease N Heart Problems N Kidney or Bladder Problems N Thyroid Problems N GI Problems N Eating Disorder [...] ICD10 Code Diagnosis IMO Codes Diagnosis Note [id number] Tiago Rod MD [place] [address] [address] 07/09/2025 09:59:27 07/09/2025 10:44:01 Disorder of intrauterine contraceptive device 967933790 T83.9XXA [id number] This patient is a 19 yo female who presents for IUD check. She had a kyleena IUD inserted approximat shaun 1 month ago. She has no complaints . She denies any excessive bleeding. She reports persistent cramping. Patient unsure if she wants to continue. We agreed to obtain ultrasound . She will follow up after ultrasound . We will consider all her options at that time. Spent over 20 minutes on the patient's care in total. We talked about various options. Talked about risks, benefits, and alternativ es. [id number] JEFFERY ROMANO, TEQUILA [place] [address] [address] 07/11/2025 17:04:09 07/11/2025 17:54:15 Pain in pelvis 96440193 R10.23 [id number] Recommende d pelvic ultrasound to evaluate uterus/ova linette/IUD positionin g prior to removal of IUD, but still offered to remove IUD today in office.Kaitlin church desires to still have pelvic ultrasound tomorrow and does not want to remove IUD in clinic today. Declined pelvic exam.Discu ssed pain management options, such as NSAIDs or Tylenol, and heating pad. Patient states that she has not tried ibuprofen yet. Recommende d ibuprofen 600-800 mg PO every 8 hours PRN.Discus sed alternativ e methods to help with menorrhagi a, including other hormonal BC or non-hormon al options such as Lysteda. Patient to consider.P atient given ER precaution s. Patient is to contact office or go to nearest ED/Urgent care if fever >/= 100.1, pain, excessive bleeding, unusual drainage or swelling in area of concern; or experienci ng worsening sx's or new onset of concerning sx's. Understand ing verbalized . All questions answered to patient satisfacti on. Health Concerns Section Related Observation LastModified by Organization Detai ls LastModified Time None Recorded Concern Status LastModified by Organization Details LastModified Time None Recorded Payers Encounter Date Sequence Insurance Name Policy Number Policy Suggs Covered Member ID Suggs Member ID Guarantor Name 07/11/2025 1 [facility] [id number] Fady Fragoso [id number] Rosalie Fragoso Notes Date Note Type Note Provider Name and Address Organization Details Recorded Time 07/11/2025 text/html Patient presents to discuss pelvic pain and bleeding she has been having since Kyleena IUD insertion on 05/25/25.Patient reports that she has been having moderate flow and mid-abdominal/pel griselda pain due to cramping.Patient states that she had her string check with MD three days ago and the strings were visible, but MD recommended pelvic ultrasound. Patient states that she has TVUS scheduled for tomorrow, but she was not sure if she wanted it removed before then due the worsening pain.Patient denies chest pain, SOB, dizziness, or bleeding through pads >every 1 hr. JEFFERY ROMANO NP [address], [place], [address], [facility] 07/11/2025 17:48:32 OBGyn Episode No OBEpisode recorded.
--- OUTSIDE RECORDS SUMMARY | 2025-07-13 17:58 | XMS_ITS | Continuity of Care Document ---
Author Organization [facility] [place] Address [address] [place] [address] Assessment No assessment recorded. Plan of Treatment [...] al No observ ation record ed. [email or web address] [place] [address], [place], [address], 07/12/2025 18:20:13 07/12/20 25 07/12/2025 US, trans vagin al No observ ation record ed. [email or web address] [place] [address], [place], [address], 07/13/2025 11:11:22 Result Notes None recorded. Procedures Surgical History Date Name Laterality Status Provider Name and Address Organization Details Recorded Time 05/25/20 25 IUD Insertion completed Margo Eaton [facility] 05/25/2025 14:09:44 05/10/20 LAPAROSCOPY, DIAGNOSTIC (SURG) completed Jennifer Mclean [facility] 05/10/2025 14:28:38 07/28/19 22 procedure on clavicle completed [facility] 03/25/2025 12:32:07 07/28/19 19 procedure on hip completed [facility] 03/25/2025 12:31:44 07/28/19 11 tonsillectomy and adenoidectomy completed [facility] 03/25/2025 12:31:30 Imaging Results None recorded. [...] Available Not Available Not Avai lable Vitals None Recorded Social History Question Answer Notes LastModified by Organizat ion Details LastModified Time Tobacco Smoking Status Never Sm[facility] 03/25/2025 12:31:11 In The 14 Days Before Symptom Onset, Have You Had Close Contact With A Laboratory-confirm ed COVID-19 While That Case Was Ill? No Information n ot available 03/25/2025 In The [...] ) N Other N Drug/Latex Allergies/Reactions N Blood Transfusion N Breast Cancer N Dermatologic Disorders N Lung Disease N Defects or Inherited Disease N Breast Problem N Gestational Diabetes N Hematologic disorders N Anesthesia Complications N History of STI N Deep Vein Thrombosis N Polycystic ovary syndrome N Anxiety Disorder N Autoimmune disease N Arthritis N Polyps N Infertility N Acid Reflux (GERD) N History of abnormal pap N Cancer N Varicosities N Stroke N Neurologic/Epilepsy N Endometriosis N High Cholesterol N Fibromyalgia N Headaches N Kidney Disease N Heart Problems N [...] ICD10 Code Diagnosis IMO Codes Diagnosis Note [id number] Tiago Rod MD [place] [address] [address] 07/09/2025 09:59:27 07/09/2025 10:44:01 Disorder of intrauterine contraceptive device 263932665 T83.9XXA [id number] This patient is a 19 yo female who presents for IUD check. She had a kyleena IUD inserted [facility] 1 month ago. She has no complaints [...] Talked about risks, benefits, and alternativ es. [id number] JEFFERY ROMANO NP [place] [address] [address] 07/11/2025 17:04:09 07/11/2025 17:54:15 Pain in pelvis 06382366 R10.23 [id number] Recommende d pelvic ultrasound to evaluate uterus/ova linette/IUD positionin g prior to removal of IUD, but still offered to remove IUD today in office.Pat ranjit desires to still have pelvic ultrasound tomorrow [...] All questions answered to patient satisfacti on. [id number] Tiago Rod MD [place] [address] [address] 07/12/2025 15:58:27 07/12/2025 17:15:01 Pelvic and perineal pain 189749410 R10.20 N83.291 [id number] severe pelvic pain. Story is consistent with endometrio sis. Discussed treatment options. We agreed to complete evaluation with pelvic ultrasound . Spent over 30 minutes with the patient on her care in total. She will return after ultrasound to form a treatment plan. [id number] JEFFERY ROMANO NP [place] [address] [address] 07/12/2025 15:58:47 07/12/2025 17:15:48 Cyst of right ovary [id number] N83.201 [id number] Discussed that ultrasound showed that the Kyleena IUD was in the correct position.D iscussed that a 5.7 cm right ovarian cyst was noted.Due to the size of the cyst, consult with MD to discuss TVUS results and potential surgical interventi on is recommende d.Patient to schedule f/u with Dr. Rod.ER precaution s given; reviewed signs and symptoms of ovarian torsion, such as severe abdominal/ pelvic pain, nausea and vomiting, severe vaginal bleeding, and dizziness. Health Concerns Section Related Observation LastModified by Organization Detai ls LastModified Time None Recorded Concern Status LastModified by Organization Details LastModified Time None Recorded Payers Encounter Date Sequence Insurance Name Policy Number Policy Suggs Covered Member ID Suggs Member ID Guarantor Name 07/12/2025 1 [facility] [id number] Fady Fragoso [id number] Rosalie Fragoso Notes Date Note Type Note Provider Name and Address Organization Details Recorded Time 07/12/2025 text/html 19 y/o patient presents for pelvic ultrasound s/p prolonged bleeding and pelvic pain since Kyleena IUD insertion. JEFFERY ROMANO NP [address], [place], [address], [facility] 07/12/2025 17:08:22 OBGyn Episode No OBEpisode recorded.
--- OUTSIDE RECORDS SUMMARY | 2025-07-13 17:58 | XMS_ITS | Continuity of Care Document ---
Author Organization [facility] [place] Address [address] [place] [address] Assessment No assessment recorded. Plan of Treatment [...] al No observ ation record ed. [email or web address] [place] [address], [place], [address], 07/12/2025 18:20:13 07/12/20 25 07/12/2025 US, trans vagin al No observ ation record ed. [email or web address] [place] [address], [place], [address], 07/13/2025 11:11:22 Result Notes None recorded. Procedures Surgical History Date Name Laterality Status Provider Name and Address Organization Details Recorded Time 05/25/20 25 IUD Insertion completed Margo Eaton [facility] 05/25/2025 14:09:44 05/10/20 LAPAROSCOPY, DIAGNOSTIC (SURG) completed Jennifer Mclean [facility] 05/10/2025 14:28:38 07/28/19 22 procedure on clavicle completed [facility] 03/25/2025 12:32:07 07/28/19 19 procedure on hip completed [facility] 03/25/2025 12:31:44 07/28/19 11 tonsillectomy and adenoidectomy completed [facility] 03/25/2025 12:31:30 Imaging Results None recorded. [...] and Address Organization Details Last Updated DateTime 07/09/2025 157.48 cm 19.4 kg/m2 85813.07 g 116/82 mm[Hg] Akilah Bangura [facility] 07/09/2025 10:03:58 Social History Question Answer Notes LastModified by Organizat ion Details LastModified Time Tobacco Smoking Status Never Smoker Margo Eaton [facility] 03/25/2025 12:31:11 In The 14 Days Before Symptom Onset, Have You Had Close Contact With A Laboratory-confirm ed COVID-19 While That Case Was Ill? No [email or web address] Information n ot available 03/25/2025 In The 14 Days Before Symptom Onset, Have You Had Close Contact With A Person Who Is Under Investigation For COVID-19 While That Person Was Ill? No [email or web address] Information not available 03/25/2025 Have You Been To An Area Known To Be High Risk For COVID-19? No [email or web address] Information not available 03/25/2025 Sex: Unknown Functional [...] ICD10 Code Diagnosis IMO Codes Diagnosis Note [id number] Tiago oRd MD [place] [address] [address] 07/09/2025 09:59:27 07/09/2025 10:44:01 Disorder of intrauterine contraceptive device [id number] T83.9XXA [id number] This patient is a 19 yo female [...] Talked about risks, benefits, and alternativ es. Health Concerns Section Related Observation LastModified by Organization Detai ls LastModified Time None Recorded Concern Status LastModified by Organization Details LastModified Time None Recorded Payers Encounter Date Sequence Insurance Name Policy Number Policy Suggs Covered Member ID Suggs Member ID Guarantor Name 07/09/2025 1 [facility] [id number] Fady Fragoso [id number] Rosalie Fragoso Notes Date Note Type Note Provider Name and Address Organization Details Recorded Time 07/09/2025 text/html This patient is a 19 yo female who presents for IUD check. She had a kyleena IUD inserted approximately 1 month ago. She has no complaints. She denies any excessive bleeding. She reports persistent cramping. Patient unsure if she wants to continue. We agreed to obtain ultrasound. She will follow up after ultrasound. We will consider all her options at that time. Spent over 20 minutes on the patient's care in total. We talked about various options. Talked about risks, benefits, and alternatives. Tiago Rod MD [address], [place], [address], [facility] 07/09/2025 10:37:41 OBGyn Episode No OBEpisode recorded.
--- OUTSIDE RECORDS SUMMARY | 2025-07-13 17:58 | XMS_ITS | Encounter Summary ---
Author Organization [facility] Address [address] [place] [address] Care Team Providers Care Front Of House Manager Name Role Phone Paige Lorenzo MD Primary Care Pro vider Fox Boggs MD Unavailable [phone] Encounter Details Date Type Department Care Team (Late st Contact Info) Description 01/14/2020 Telephone [facility] [address] [place] [address] Martina Phillips RT Social History Tobacco Use Types Packs/Day Years Used Date Smoking Tobacco: Never Smokeless Tobacco: Never Comments No Sex and Gender Information Value Date Recorded Sex Assigned at Not on file Legal Sex Female 1:57 AM THIRD HAND Gender Identity Not on file Sexual Orientation Not on file documented as of this encounter Functional Status * Question Answer Date of Assessment Author BP Location Right arm 01/17/2020 8:09 AM Ciarra Harley RN BP Method Automatic 01/17/2020 8:09 AM ELEUTERIOT Ciarra Katz RN * Butts Fall Risk Question Answer Date of Assessment Author History of Falling 0 01/17/2020 8:05 AM Ciarra Rapp RN Secondary Diagnosis 15 01/17/2020 8:05 AM Ciarra Banks RN Ambulatory Aids 0 01/17/2020 8:05 AM Ciarra Decker Ma, RN Intravenous Therapy/Heparin/Saline Lock 0 01/17/2020 8:05 AM Rah Rapp RN Gait/Transferring 0 01/17/2020 8:05 AM Ciarra Rapp RN Mental Status 0 01/17/2020 8:05 AM Ciarra Lange RN Morse Fall Risk Score (Score >= 45 places fall precaution order) 15 01/17/2020 8:05 AM Ciarra Lange RN * Question Answer Date of Assessment Author BP Location Right arm 01/17/2020 8:09 AM Ciarra Harley RN BP Method Automatic 01/17/2020 8:09 AM Ciarra Harley RN * ADL Screening Question Answer Date of Assessment Author Hearing - Right Ear Functional 01/17/2020 8:05 AM Ciarra Banks RN Hearing - Left Ear Functional 01/17/2020 8:05 AM Ciarra Rapp RN * Assistive Devices Question Answer Date of Assessment Author Assistive Devices/DME None 01/17/2020 8:05 AM Ciarra Rapp RN documented as of this encounter Plan of Treatment Not on file documented as of this encounter Visit Diagnoses Not on filedocumented in this encounter Care Teams Front Of House Manager Relationship Specialty Start Date End Date Paige Lorenzo MD PCP - General 10/11/17 Fox Boggs MD [address] [address] Surgeon Orthopedic Surgery 05/23/20 documented as of this encounter
--- OUTSIDE RECORDS SUMMARY | 2025-07-13 17:58 | XMS_ITS | Clinical Summary ---
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 Other - see comments Right: Hip [employer] [id number] 03/15/2022 [id number] / N/A / [id number] [employer]hew [employer] [id number] [place] Suture Microraptor Regenesorb Knotless Rigid - Sn/A - [id number] Implanted:Qty: 1 on 01/18/2020 by Fox Boggs MD at [facility] Other - see comments Right: Hip [employer] Nephew [employer] [id number] 04/08/2022 [id number] / N/A / [id number] Synthes 214.880 4.5mm 8mm 80mm Self Tap Large Hexagonal Socket Cortical Screw - Sn/A - [id number] Implanted:Qty: 1 on 01/18/2020 by Fox Boggs MD at [facility] Screw Right: Hip Synthes I 214.880 / N/A / N/A Synthes 214.895 4.5mm 8mm 95mm Self Tap Large Hexagonal Socket Cortical Screw - Sn/A - [id number] Implanted:Qty: 1 on 01/18/2020 by Fox Boggs MD at [facility] Screw Right: Hip Synthes I 214.895 / N/A / N/A Synthes 214.870 4.5mm 8mm 70mm Self Tap Large Hexagonal Socket Cortex Screw Bone - Sn/A - [id number] Implanted:Qty: 1 on 01/18/2020 by Fox Boggs MD at [facility] Screw Right: Hip Synthes I 214.870 / N/A / N/A Synthes 214.860 4.5mm 8mm 60mm Self Tap Large Hexagonal Socket Cortical Screw - Sn/A - [id number] Implanted:Qty: 1 on 01/18/2020 by Fox Boggs MD at [facility] Screw Right: Hip Synthes I 214.860 / N/A / N/A Explanted Type Area Switchgear Repairer Device Identifier Shelf Expiration Date Model / Serial / Lot Synthes 294.786 Schanz 5mm 200mm 80mm Self Drill Mr Conditional Screw External - Sn/A - [id number] Explanted:Qty: 1 on 01/18/2020 by Fox Boggs MD at [facility] Screw Right: Hip Synthes I 294.786 / N/A / N/A Description:Used for procedu re and removed at end. Synthes 292.26 Chana 2.5mm 285mm [place] Wire Fixation Stainless Steel - Sn/A - [id number] Explanted:Qty: 2 on 01/18/2020 by Fox Boggs MD at [facility] Wire Right: Hip Synthes I 292.26 / N/A / N/A Description:Used for procedu re and removed at end. Insurance ANTHEM ACCESS ANTHEM ACCESS CHOICE Member Subscriber Plan / Payer (Ef fective 2015-Present) Name:Rosalie Bolton Relation to Subscriber:Other Relationship Name:ROSY BOLTON Date of :1975 Payer ID:[id number] (NAIC) Type:SignaCert Address: [address] [place] [id number] BLUE ACCESS OOS [facility] KERRI VALENZUELA [address] [place] OOS ANTHEM ACCESS Member Subscriber Plan / Payer (Ef fective 2015-Present) Name:Rosalie Bolton Relation to Subscriber:Other Relationship Name:ROSY BOLTON Subscriber ID:Not on file Date of :1975 Payer ID:[id number] (NAIC) Type:SignaCert Address: [address] [facility] H[facility]/PPO Address: [address] [address] [place] [address] BLUE ACCESS OOS BLUE ACCESS [place] BLUE ACCESS OOS [facility] ACCESS Care Teams Recreation Manager Relationship Specialty Start Date End Date Paige Lorenzo MD PCP - General 10/11/17 Fox Boggs MD [address] [facility] [address] [place] [address] Surgeon Orthopedic Surgery 05/23/20
--- OUTSIDE RECORDS SUMMARY | 2025-07-13 17:58 | XMS_ITS | Continuity of Care Document ---
Author Organization [facility] [place] Address [address] [place] [address] [address] Assessment No assessment recorded. Plan of Treatment Reminders Order Date Submit Date Provider Last Modified By Organization Details Last Modified Time Details Appointments U/S F/U 2024 02:15P José ROD MD Not available Not available Not available Lab None recorded. Referral None recorded. Procedures None recorded. Surgeries None recorded. Imaging US, transvagi nal 2024 025 [email or web address] [place], [address], [place], [address], 07/13/2025 10:34:41 Medication Orders None recorded. Patient TargetsNo targets recorded. Patient InstructionsNo instructions recorded. Reason for Referral None Reported. Results Created Date Observation Date Name Description Value Unit Range Abnormal Flag Note LastModifiedBy Organization Detail LastModifiedTime 07/12/2007/12/2025 US, trans vagin al No observ ation record ed. [email or web address] [place] [address], [place], [address], 07/12/2025 18:20:13 07/12/20 25 07/12/2025 US, trans vagin al No observ ation record ed. [email or web address] [place] [address], [place], [address], 07/13/2025 11:11:22 Result Notes None recorded. Procedures Surgical History Date Name Laterality Status Provider Name and Address Organization Details Recorded Time 05/25/20 25 IUD Insertion completed Margo Eaton [facility] 05/25/2025 14:09:44 05/10/20 25 LAPAROSCOPY, DIAGNOSTIC (SURG) completed Jennifer Mclean [facility] 05/10/2025 14:28:38 07/28/19 22 procedure on clavicle completed [facility] 03/25/2025 12:32:07 07/28/19 19 procedure on hip completed [facility] 03/25/2025 12:31:44 07/28/19 11 tonsillectomy and adenoidectomy completed [facility] 03/25/2025 12:31:30 Imaging Results None [...] Tobacco Smoking Status Never Smoker Margo Eaton [facility] 03/25/2025 12:31:11 In The 14 Days Before Symptom Onset, Have You Had Close Contact With A Laboratory-confirm ed COVID-19 While That Case Was Ill? No [email or web address] Information n ot available 03/25/2025 In The 14 Days Before Symptom Onset, Have You Had Close Contact With A Person Who Is Under Investigation For COVID-19 While That Person Was Ill? No [email or web address] Information not available 03/25/2025 Have You Been To An Area Known To Be High Risk For COVID-19? No [email or web address] Information not available 03/25/2025 Sex: Unknown Functional [...] ICD10 Code Diagnosis IMO Codes Diagnosis Note [id number] Tiago Rod MD [place] [address] [address] 07/09/2025 09:59:27 07/09/2025 10:44:01 Disorder of intrauterine contraceptive device 894677492 T83.9XXA [id number] This patient is a 19 yo female [...] Talked about risks, benefits, and alternativ es. [id number] JEFFERY ROMANO NP [place] [address] [address] 07/11/2025 17:04:09 07/11/2025 17:54:15 Pain in pelvis 84489872 R10.23 [id number] Recommende d pelvic ultrasound to evaluate uterus/ova [...] All questions answered to patient satisfacti on. [id number] Tiago Rod MD [place] [address] [address] 07/12/2025 15:58:27 07/12/2025 17:15:01 Pelvic and perineal pain 686087319 R10.20 N83.291 674089 severe pelvic pain. Story is consistent with endometrio sis. Discussed treatment options. We agreed to complete evaluation with pelvic ultrasound . Spent over 30 minutes with the patient on her care in total. She will return after ultrasound to form a treatment plan. [id number] JEFFERY ROMANO NP [place] [address] [address] 07/12/2025 15:58:47 07/12/2025 17:15:48 Cyst of right ovary [id number] N83.201 722051 Discussed that ultrasound showed that the Kyleena [...] Suggs Member ID Guarantor Name 07/12/2025 1 [facility] [id number] Fady Fragoso [id number] Rosalie Fragoso Notes Date Note Type Note Provider Name and Address Organization Details Recorded Time 07/12/2025 text/html 19 y/o patient presents for pelvic ultrasound s/p prolonged bleeding and pelvic pain since Kyleena IUD insertion. JEFFERY ROMANO NP [address], [place], [address], [place] [facility] 07/12/2025 17:08:22 OBGyn Episode No OBEpisode recorded.
--- OUTSIDE RECORDS SUMMARY | 2025-07-13 17:58 | XMS_ITS | Continuity of Care Document ---
Author Organization [facility] [place] Address [address] [place] [address] Assessment No assessment recorded. Plan of Treatment Reminders Order Date Submit Date Provider Last Modified By Organization Details Last Modified Time Details Appointments U/S F/U 2024 02:15P José ROD MD Not available Not available Not available Lab test, urine [address] [facility] [address], [place], [address], 05/25/2025 15:21:54 Referral None recorded. Procedures None recorded. Surgeries None recorded. Imaging None recorded. Medication Orders Kyleena 17.5 mcg/24 hr (up to 5 years) 19.5 mg intrauter ine device [address] [facility], [address] [place] [address], [address], 05/25/2025 15:21:54 Patient TargetsNo targets recorded. Patient InstructionsNo instructions recorded. Reason for Referral None Reported. Results Created Date Observation Date Name Description Value Unit Range Abnormal Flag Note LastModifiedBy Organization Detail LastModifiedTime 05/25/2005/25/2025 pregn guero test, urine HCG negati ve Not Available [place] [address], [place], [address], 05/25/2025 15:21:18 07/12/20 25 07/12/2025 US, trans vagin al No observ ation record ed. [email or web address] [place] [address], [place], [address], 07/12/2025 18:20:13 07/12/20 25 07/12/2025 US, trans vagin al No observ ation record ed. [email or web address] [place] [address], [place], [address], 07/13/2025 11:11:22 Result Notes None recorded. Procedures Surgical History Date Name Laterality Status Provider Name and Address Organization Details Recorded Time 05/25/20 25 IUD Insertion completed [facility] 05/25/2025 14:09:44 05/10/20 25 LAPAROSCOPY, DIAGNOSTIC (SURG) completed Jennifer Mclean [facility] 05/10/2025 14:28:38 07/28/19 22 procedure on clavicle completed [facility] 03/25/2025 12:32:07 07/28/19 19 procedure on hip completed [facility] 03/25/2025 12:31:44 07/28/19 11 tonsillectomy and adenoidectomy completed [facility] 03/25/2025 12:31:30 Imaging Results None recorded. [...] and Address Organization Details Last Updated DateTime 05/25/2025 157.48 cm 19 kg/m2 09270.61 g 104/69 mm[Hg] Margo Eaton [facility] 05/25/2025 14:10:35 Social History Question Answer Notes LastModified by Organizat ion Details LastModified Time Tobacco Smoking Status Never Smoker Margo Eaton avi, [facility] 03/25/2025 12:31:11 In The 14 Days Before Symptom Onset, Have You Had Close Contact With A Laboratory-confirm ed COVID-19 While That Case Was Ill? No [email or web address] Information n ot available 03/25/2025 In The 14 Days Before Symptom Onset, Have You Had Close Contact With A Person Who Is Under Investigation For COVID-19 While That Person Was Ill? No [email or web address] Information not available 03/25/2025 Have You Been To An Area Known To Be High Risk For COVID-19? No [email or web address] Information not available 03/25/2025 Sex: Unknown Functional Status None recorded. Mental Status None recorded. Family History Relationship Description Onset Age of this Age Resolved Age Notes LastModified by Organization Details LastModified Time Father No current problems or disability [email or web address] Not available 04/11 12:43:24 Mother No current problems or disability [email or web address] Not available 04/11 12:43:24 Medical History Condition Response Other N Blood Transfusion N Dermatologic Disorders N Gestational Diabetes N Anxiety Disorder N Autoimmune disease N Arthritis N Polyps N Infertility N Acid Reflux (GERD) N Cancer N Varicosities N Stroke N Neurologic/Epilepsy N Fibromyalgia N Headaches N Kidney Disease N Heart Problems N Kidney or Bladder Problems N Eating Disorder N Art (IVF or FET) N Hepatitis/Liver Disease N No Past Medical History Y Urinary Tract Infection N Asthma N Trauma/Violence N Thrombophilias N Allergies (Food, seasonal, environmental ) N Breast Cancer N Drug/Latex Allergies/Reactions N Lung Disease N Defects or Inherited Disease N Breast Problem N Hematologic disorders N Anesthesia Complications N History of STI N Deep Vein Thrombosis N Polycystic ovary syndrome N History of abnormal pap N Endometriosis N High Cholesterol N Thyroid Problems N GI Problems N Anemia N Psychiatric Illness N Ovarian Cancer N Diabetes N Pulmonary (TB, Asthma) N Eczema N Abuse/Domestic Violence N Depression/ depression N Heart Disease N Pre-Eclampsia N Hypertension N Osteoporosis N Gynecological History Statement/Question Response Flow Heavy [...] ICD10 Code Diagnosis IMO Codes Diagnosis Note [id number] Tiago Rod MD [place] [address] [address] 05/16/2025 11:36:06 05/16/2025 14:42:26 Postoperative visit 801217030 Z48.89 [id number] this patient is a 19-year-ol d female who presents for postop follow-up. She was diagnosed with hemoperito neum and a small endometria l implant near the rectum /Posterior cul-de-sac . Discussed hormonal contracept andria to diminish hemoperito neum. We agreed to Kyleena IUD. She will return for IUD insertion. [id number] Tiago Rod MD [place] [address] [address] 05/25/2025 13:49:41 05/25/2025 15:26:19 Insertion of intrauterine contraceptive device 29145306 Z30.430 [id number] Health Concerns Section Related Observation LastModified by Organization Detai ls LastModified Time None Recorded Concern Status LastModified by Organization Details LastModified Time None Recorded Payers Encounter Date Sequence Insurance Name Policy Number Policy Suggs Covered Member ID Suggs Member ID Guarantor Name 05/25/2025 1 [facility] [id number] Fady Fragoso [id number] Rosalie Fragoso Notes Date Note Type Note Provider Name and Address Organization Details Recorded Time 05/25/2025 text/html Patient presents for IUD insertion. Margo cárdenas [facility] 05/25/2025 15:21:57 OBGyn Episode No OBEpisode recorded.
--- OUTSIDE RECORDS SUMMARY | 2025-07-13 17:59 | XMS_ITS | Data Portability ---
Author Organization [facility] [place] Address [address] [place] [address] Assessment No assessment recorded. Plan of Treatment Reminders Order Date Submit Date Provider Last Modified By Organization Details Last Modified Time Details Appointments U/S F/U 2024 02:15P José ROD MD Not available Not available Not available Lab test, urine [address], [address], [place], [address], 05/25/2025 15:21:54 Referral None recorded. Procedures None recorded. Surgeries None recorded. Imaging US, transvagi nal 2024 025 [email or web address] [place], [address], [place], [address], 07/13/2025 10:34:41 Medication Orders Kyleena 17.5 mcg/24 hr (up to 5 years) 19.5 mg intrauter ine device [address] [facility] [facility], [place], [address], 05/25/2025 15:21:54 Patient TargetsNo targets recorded. Patient InstructionsNo instructions recorded. Reason for Referral None Reported. Results Created Date Observation Date Name Description Value Unit Range Abnormal Flag Note LastModifiedBy Organization Detail LastModifiedTime 05/25/20 25 05/25/2025 pregn guero test, urine HCG negati ve Not Available [place] [address], [place], [address], 05/25/2025 15:21:18 07/12/20 25 07/12/2025 US, trans vagin al No observ ation record ed. [email or web address] [place] [address], [place], [address], 07/12/2025 18:20:13 07/12/20 25 07/12/2025 US, trans vagin al No observ ation record ed. [email or web address] [place] [address], [place], [address], 07/13/2025 11:11:22 Result Notes None recorded. Procedures Surgical History Date Name Laterality Status Provider Name and Address Organization Details Recorded Time 05/25/20 25 IUD Insertion completed [facility] 05/25/2025 14:09:44 05/10/20 25 LAPAROSCOPY, DIAGNOSTIC (SURG) completed Jennifer Mclean [facility] 05/10/2025 14:28:38 07/28/19 22 procedure on clavicle completed [facility] 03/25/2025 12:32:07 07/28/19 19 procedure on hip completed [facility] 03/25/2025 12:31:44 07/28/19 11 tonsillectomy and adenoidectomy completed [facility] 03/25/2025 12:31:30 Imaging Results [...] Available Not Available Not Available amoxicillin 875 mg-emanuel mark clavulanate 125 mg tablet TAKE 1 TABLET [...] Updated DateTime 05/25/2025 157.48 cm 19 kg/m2 78956.61 g 104/69 mm[Hg] [facility] 05/25/2025 14:10:35 Date Recorded Body height Body mass index (BMI) Body weight Systolic And Diastolic Provider Name and Address Organization Details Last Updated DateTime 07/09/2025 157.48 cm 19.4 kg/m2 79917.07 g 116/82 mm[Hg] [facility] 07/09/2025 10:03:58 Date Recorded Body height Body mass index (BMI) Body weight Provider Name and Address Organization Details Last Updated DateTime 07/11/2025 157.48 cm 18.7 kg/m2 75727.14 g [facility] 07/11/2025 17:20:39 Social History Question Answer Notes LastModified by Organizat ion Details LastModified Time Tobacco Smoking Status Never Smoker Margolainey Guerreroney [facility] 03/25/2025 12:31:11 In The 14 Days [...] ICD10 Code Diagnosis IMO Codes Diagnosis Note [id number] Tiago Rod MD [place] [address] [address] 03/25/2025 11:54:58 03/26/2025 09:38:35 Menorrhagia 606179560 N92.0 4033067 Pain in pelvis 14404412 R10.2 14217 severe pelvic pain. Story is consistent with endometrio sis. Discussed treatment options. We agreed to complete evaluation with pelvic ultrasound . Spent over 30 minutes with the patient on her care in total. She will return after ultrasound to form a treatment plan. [id number] Tiago Rod MD [place] [address] [address] 03/29/2025 14:29:12 03/29/2025 15:06:13 Pain in pelvis 15652353 R10.2 N92.0 35378 severe pelvic pain. Story is consistent with endometrio sis. Discussed treatment options. We agreed to complete evaluation with pelvic ultrasound . Spent over 30 minutes with the patient on her care in total. She will return after ultrasound to form a treatment plan. [id number] Tiago Rod MD [place] [address] [address] 04/11/2025 12:00:57 04/11/2025 13:15:58 Pain in pelvis 66960702 R10.2 [id number] 19-year-ol d female with pelvic pain. Her story is consistent with endometrio sis. We talked about medical treatment. She would like to be more aggressive and definitive in the diagnosis. We agreed to move forward with diagnostic laparoscop y. I spent over 30 minutes on her care in total including documentat ion, evaluation of ultrasound results, discussion of ultrasound results. The patient understand s the procedure. The procedure was described to the patient in great detail. the patient also understand s the risks. The risks were also explained in detail. She understand s that injuries May occur during surgery. She understand s these injuries can result in hospitaliz ation, more surgery, and severe illness. She understand s there is risk of hemorrhage and infection. [id number] Tiago Rod MD [place] [address] [address] 05/16/2025 11:36:06 05/16/2025 14:42:26 Postoperative visit 720036940 Z48.89 [id number] this patient is a 19-year-ol d female who presents for postop follow-up. She was diagnosed with hemoperito neum and a small endometria l implant near the rectum /Posterior cul-de-sac . Discussed hormonal contracept andria to diminish hemoperito neum. We agreed to Kyleena IUD. She will return for IUD insertion. [id number] Tiago Rod MD [place] [address] [address] 05/25/2025 13:49:41 05/25/2025 15:26:19 Insertion of intrauterine contraceptive device 30972234 Z30.430 019861 [id number] Tiago Rod MD [place] [address] [address] 07/09/2025 09:59:27 07/09/2025 10:44:01 Disorder of intrauterine contraceptive device 286962776 T83.9XXA [id number] This patient is a 19 yo female [...] Talked about risks, benefits, and alternativ es. [id number] JEFFERY ROMANO NP [place] [address] [address] 07/11/2025 17:04:09 07/11/2025 17:54:15 Pain in pelvis 19084492 R10.23 5756744691 Recommende d pelvic ultrasound to evaluate uterus/ova linette/IUD positionin g prior to removal of IUD, but still offered to remove IUD today in office.Pat ient desires to still have pelvic ultrasound tomorrow [...] All questions answered to patient satisfacti on. [id number] Tiago Rod MD [place] [address] [address] 07/12/2025 15:58:27 07/12/2025 17:15:01 Pelvic and perineal pain 825985213 R10.20 N83.291 589569 severe pelvic pain. Story is consistent with endometrio sis. Discussed treatment options. We agreed to complete evaluation with pelvic ultrasound . Spent over 30 minutes with the patient on her care in total. She will return after ultrasound to form a treatment plan. [id number] JEFFERY ROMANO NP [place] [address] [address] 07/12/2025 15:58:47 07/12/2025 17:15:48 Cyst of right ovary [id number] 4851665 N83.201 [id number] Discussed that ultrasound showed that the Kyleena [...] by Organization Details LastModified Time None Recorded Advance Directives Directive None Recorded Payers Insurance Date Sequence Insurance Name Policy Number Policy Suggs Covered Member ID Suggs Member ID Guarantor Name 07/12/2025 1 [facility] [id number] Fady Fragoso [id number] Rosalie Fragoso Notes Date Note Type Note Provider Name and Address Organization Details Recorded Time 05/25/2025 text/html Patient presents for IUD insertion. Margo Eaton [facility] [place] - [facility] 05/25/2025 15:21:57 07/09/2025 text/html This patient is a 19 [...] benefits, and alternatives. Tiago Rod MD [address], [place], [address], [facility] 07/09/2025 10:37:41 07/11/2025 text/html Patient presents to discuss pelvic pain and bleeding she has been having since Kyleena IUD insertion on 05/25/25.Patient reports that she has been having moderate flow and mid-abdominal/pelvi c pain due to cramping.Patient states that she [...] hr. JEFFERY ROMANO NP [address], [place], [address], [facility] 07/11/2025 17:48:32 07/12/2025 text/html 19 y/o patient presents for pelvic ultrasound s/p prolonged bleeding and pelvic pain since Kyleena IUD insertion. JEFFERY ROMANO NP [address], [place], [address], [facility] 07/12/2025 17:08:22 OBGyn Episode No OBEpisode recorded.
--- NOTE | 2025-07-13 19:24 | ED_ITS ---
HPI - Female Genitourinary General Chief complaint: Urogenital-Female Stated complaint: ovarian cyst Time Seen by Provider: 07/13/25 19:12 Source: patient Mode of arrival: ambulatory Limitations: no limitations History of Present Illness HPI Narrative: This is a 19-year-old female who presents the ED for right lower quadrant abdominal pain. Patient states over the past couple weeks, she has been having intermittent severe right lower quadrant abdominal pain. She recently had an IUD placed 2 months ago. She has been following with Dr. Travis regarding this and saw them yesterday where an ultrasound was obtained which showed a 6 cm cyst. She has an appointment tomorrow to potentially schedule a surgery to drain this. He states that her pain worsened today prompting her to come to the ED. she has also had nausea and intermittent vomiting. Decreased appetite for the last several days. Related Data Allergies Allergy/AdvReac Type Severity Reaction Status Date / Time No Known Allergies Allergy Verified 07/13/25 15:35 Review of Systems 2 Review of Systems: All systems reviewed & are unremarkable except as noted in HPI and below PMFSH Social History Social History Years smoked: 5 Smoking status: Current every day smoker Tobacco type: e-cigarettes/vaping Smokeless tobacco user: other Alcohol intake: current Drinks per week: 3 Substance use: current Substance use type: marijuana Other substance usage details: daily Living arrangements: with family Gender identity (if verbalized by the patient): Female Spiritual care concerns: No Exam 2 Narrative: APPEARANCE: No acute distress, nontoxic, resting in bed EYES: EOMI HEENT: Normocephalic, atraumatic, OMM RESPIRATORY: No respiratory distress Clear to auscultation bilaterally with no rhonchi wheezing or rales. CARDIOVASCULAR: Regular rate and rhythm without murmurs rubs or gallops. ABDOMINAL: Soft, tenderness palpation of the right lower quadrant MUSCULOSKELETAl: Moves all extremities. No clubbing, cyanosis or edema. NEURO: Awake and alert. Following commands, speech normal, no focal deficits SKIN:: Warm, dry. No rashes lesions or abrasions PSYCHIATRIC: Normal affect/mood, Course Vital Signs Vital signs: Vital Signs Temperature 98.0 F 07/13/25 15:39 Pulse Rate 85 07/13/25 15:39 Respiratory Rate 16 07/13/25 15:39 Blood Pressure 109/69 07/13/25 15:39 Pulse Oximetry 97 07/13/25 15:39 Temperature 98.0 F 07/13/25 15:39 Pulse Rate 85 07/13/25 15:39 Respiratory Rate 16 07/13/25 15:39 Blood Pressure 109/69 07/13/25 15:39 Pulse Oximetry 97 07/13/25 15:39 MDM MDM Narrative Medical decision making narrative: 19-year-old female presenting for intermittent right lower quadrant pain. On initial evaluation patient was in no acute distress afebrile, hemodynamic stable. Differentials include but are not limited to: Ovarian torsion, ovarian cyst, ectopic , Appendicitis, constipation, IBD, IBS, ureterolithiasis, enterocolitis, colitis, hernia Notable exam findings: Tenderness palpation in the right lower quadrant I personally reviewed the patient's lab result. Notable lab findings: CBC and CMP without significant abnormalities. Patient's history is potentially concerning for intermittent ovarian torsion. Ultrasound was obtained which showed no ovarian torsion and no ovarian cyst, no free fluid noted. Patient's pain was significantly better at this time. While there was no free fluid noted, given there was no identifiable ovarian cyst, at to suspect that she rupture of the ovarian cyst. She does have appointment tomorrow with her OBGYN so I advised that she continue to that appointment. Patient was agreeable to the plan. Given strict return precautions. Differential Diagnosis Differential Diagnosis: Ovarian torsion, ovarian cyst, ectopic , Appendicitis, constipation, IBD, IBS, ureterolithiasis, enterocolitis, colitis, hernia Lab Data 07/13/25 20:33 07/13/25 20:33 Labs: Lab Results 07/13/25 07/13/25 Range/Units 20:32 20:33 WBC 8.2 (4.5-10.0) K/mm3 RBC 4.71 (4.2-5.4) M/mm3 Hgb 12.8 (12.0-15.0) g/dL Hct 39.3 (37.0-47.0) % MCV 83.4 (80-100) fl MCH 27.2 (26-34) pg MCHC 32.6 (32-36) g/dl RDW 13.0 (11.5-14.5) % Plt Count 192 (150-375) k/mm3 MPV 11.0 H (7.4-10.4) fl Immature Gran % (Auto) 0.4 (0-0.5) % Neut % (Auto) 56.4 (45.5-73.1) % Lymph % (Auto) 34.8 (18.3-44.2) % [place] % (Auto) 6.9 (2.6-8.5) % Eos % (Auto) 1.3 (0-4.4) % Baso % (Auto) 0.2 (0.2-1.2) % Lymph # (Auto) 2.86 (0.9-3.2) K/mm3 [place] # (Auto) 0.6 (0.1-0.6) K/mm3 Eos # (Auto) 0.1 (0-0.3) K/mm3 Baso # (Auto) 0.0 (0.0-0.1) K/mm3 Abs Immat Gran (auto) 0.03 (0.00-0.031) K/mm3 Absolute Neuts (auto) 4.6 (1.3-6.7) K/mm3 Absolute Nucleated RBC 0.000 (0.0-0.012) K/mm3 Nucleated RBC % 0.0 (0.0-0.2) % Sodium 138 (137-145) mmol/L Potassium 3.4 (3.4-5.0) mmol/L Chloride 104 (98-107) mmol/L Carbon Dioxide 26 (22-30) mmol/L Anion Gap 8 (4-12) mmol/L BUN 12 (7-17) mg/dL Creatinine 0.69 L (0.7-1.0) mg/dL Estim Creat Clear Calc 81 ml/min Estimated GFR > 60 (59 - ) Glucose 78 (65-110) mg/dL Calcium 9.7 (8.4-10.2) mg/dL Urine Color Yellow (Yellow) Urine Appearance Clear (Clear) Urine pH 5.5 (5.0-9.0) Ur Specific [place] 1.032 (1.001-1.035) Urine Protein Trace (Negative) mg/dL Urine Glucose (UA) Negative (Negative) mg/dL Urine Ketones Trace H (Negative) mg/dL Ur Blood (Man) 1+ H (Negative) Urine Nitrate Negative (Negative) Urine Bilirubin Negative (Negative) Urine Urobilinogen 1.0 (<2.0) mg/dL Leukocyte Esterase Rfl Negative (Negative) BRIGID/UL Urine RBC 3-5 H (0-2) /hpf Urine WBC 0-5 (0-3) /hpf Ur Squamous Epith Cells Occasional (Few) /hpf Urine Bacteria Rare /hpf Urine Casts 3-5 POC Urine HCG, Qual Negative (Negative) Imaging Data Radiologist's impression: ITS Impressions Transvaginal US 07/13/25 20:14 Impression: Normal bilateral ovarian Doppler. No evidence of ovarian torsion. IMPRESSION: The uterus and ovaries are unremarkable. There is no free fluid in the cul-de-sac. IUD is in the uterus. Discharge Plan Discharge Clinical Impression: Abdominal pain Qualifiers: Abdominal location: right lower quadrant Qualified Code(s): R10.31 - Right lower quadrant pain Patient Disposition: Home Condition: Stable Instructions: Antibiotic Form, Ruptured Ovarian Cyst (ED) Additional Instructions: Ultrasound was reassuring and showed no evidence of ovarian cysts this time. This may be consistent with a ruptured ovarian cyst, however, there is no free fluid on the ultrasound as would be expected. Because of this, I think you should still follow-up with Dr. Travis tomorrow to further discuss potential options and for him to compare the images. Your given a prescription for Zofran, take this as prescribed. You may take Tylenol and ibuprofen for the pain if it returns. Return to the ED for any new or worsening symptoms. For pain, discomfort or temperature greater than or equal to 100.8 ?F please alternate the following 2 medications as needed. First medication- acetaminophen/Tylenol- 1000mg every 6-8 hours as needed for above indications. Second medication- ibuprofen/Motrin-600mg every 6-8 hours as needed for above indication. Patient Language: Montenegrin Prescriptions: New ondansetron 4 mg tablet,disintegrating 4 mg PO Q8H PRN (Reason: nausea and vomiting) Qty: 12 0RF No Action hydrocodone-acetaminophen 5-325 mg tablet 1 - 2 tablet PO Q6H PRN (Reason: pain) Qty: 10 0RF Follow-up/Referrals: Tiago Travis MD [Physician, ETL BI DEVELOPER] PHYSICIAN,IN HOME SALES CONSULTANT [Primary Care Provider, Internal Medicine]
--- OUTSIDE RECORDS SUMMARY | 2025-07-13 19:27 | XMS_ITS | Encounter Summary ---
Author Organization [facility] Healthcare Address [address] [place] [address] Care Team Providers Care Occupational Health Manager Name Role Phone Paige Lorenzo MD Primary Care Pro vider Fox Boggs MD Unavailable Encounter Details Date Type Department Care Team (Late st Contact Info) Description 01/14/2020 Telephone [facility] [id number] [place] [address] Martina Phillips RT Social History Tobacco Use Types Packs/Day Years Used Date Smoking Tobacco: Never Smokeless Tobacco: Never Comments No Sex and Gender Information Value Date Recorded Sex Assigned at Not on file Legal Sex Female 1:57 AM [employer]ING [employer] WORK[employer] Gender Identity Not on file Sexual Orientation [...] on filedocumented in this encounter Care Teams Occupational Health Manager Relationship Specialty Start Date End Date Paige Lorenzo MD PCP - General 10/11/17 Fox Boggs MD [address] [address] Surgeon Orthopedic Surgery 05/23/20 documented as of this encounter
[2025-07-13] MEDS: KETOROLAC 30 MG/ML VIAL (*BKC) IV PUSH (20:34)
[2025-07-13] MEDS: ONDANSETRON INJ 4 MG/2 ML VIAL IV PUSH (20:35)
[2025-07-13 20:52] LABS: Hematocrit 39.3 % (37.0-47.0); Hemoglobin 12.8 g/dL (12.0-15.0); Immature Granulocyte Percent A 0.4 % (0-0.5); Lymphocytes Absolute Auto 2.86 K/mm3 (0.9-3.2); Mean Corpuscular HGB Conc 32.6 g/dl (32-36); Mean Corpuscular Hemoglobin 27.2 pg (26-34); Mean Corpuscular Volume 83.4 fl (80-100); Nucleated Red Blood Cells Absolute Auto 0.000 K/mm3 (0.0-0.012); Nucleated Red Blood Cells Perc 0.0 % (0.0-0.2); Platelet Count Result 192 k/mm3 (150-375); Red Blood Count 4.71 M/mm3 (4.2-5.4); White Blood Count 8.2 K/mm3 (4.5-10.0)
[2025-07-13 21:01] LABS: BEDSIDEPREGUCG Negative (Negative)
[2025-07-13 21:02] LABS: Add Urine Microscopic? YES; Appearance Urine Clear (Clear); Glucose Urine UA Negative (Negative); Leukocyte Esterase Ur Negative LEU/UL (Negative); Nitrate Urine Negative (Negative); Specific Grav Ur 1.032 (1.001-1.035)
[2025-07-13 21:03] LABS: Anion Gap 8 mmol/L (4-12); Blood Urea Nitrogen 12 mg/dL (7-17); Calcium 9.7 mg/dL (8.4-10.2); Carbon Dioxide 26 mmol/L (22-30); Chloride 104 mmol/L (98-107); Estimated CRCL calculation 81 ml/min; Estimated Glomerular Filt Rate > 60; Glucose 78 mg/dL (65-110); Potassium 3.4 mmol/L (3.4-5.0); Sodium 138 mmol/L (137-145)
[2025-07-13 22:02] VITALS: BP 103/67; PULSE 73; RESP 18; O2SAT 97
== END 2025-07-13 22:02 | disposition home or self-care (01) ==
PROVIDERS: Emergency Provider Student in an Organized Health Care Education/Training Program
DX: R10.31 Right lower quadrant pain (principal); F17.290 Nicotine dependence, other tobacco product, uncomplicated
CPT/HCPCS: 36415; 76830; 80048; 81001; 81025; 85025; 96374; 96375; 99284; J1885; J2405